=== PATIENT | female | born 1950 | race Caucasian/White ===

== ENCOUNTER 2017-07-20 12:47 | Outpatient (CLI) | payer MEDICARE | END 2017-07-20 12:48 | disposition home or self-care (01) | LOC: BICMAMMO 12:47 | PROVIDERS: ATTEND Family Medicine | DX: Z12.31 Encounter for screening mammogram for malignant neoplasm of breast (principal); R92.1 Mammographic calcification found on diagnostic imaging of breast | CPT/HCPCS: 77063; 77067 ==

== ENCOUNTER 2017-09-14 14:17 | Outpatient (CLI) | payer MEDICARE | END 2017-09-14 14:18 | disposition home or self-care (01) | LOC: BICMAMMO 14:17 | PROVIDERS: ATTEND Family Medicine | DX: R92.1 Mammographic calcification found on diagnostic imaging of breast (principal) | CPT/HCPCS: 77065; G0279 ==

== ENCOUNTER 2018-08-03 13:36 | Outpatient (CLI) | payer MEDICARE ==
--- NOTE | 2018-08-09 13:22 | MMO ---
Bilateral MAMMO Bilat Diag DDI+SATHYA. CLINICAL HISTORY: Patient is 67 years old and is seen for diagnostic exam. The patient has no family history of breast cancer. The patient has no personal history of cancer. VIEWS: The views performed were: bilateral mediolateral; bilateral craniocaudal with tomosynthesis; bilateral mediolateral oblique with tomosynthesis; left craniocaudal magnification; and left mediolateral magnification. FILMS COMPARED: The present examination has been compared to prior imaging studies performed at [facility] on 07/20/2017 and 09/14/2017. MAMMOGRAM FINDINGS: The breasts are heterogeneously dense, which could obscure a lesion on mammography. There are stable calcifications seen in the left breast. In the right breast, there are no suspicious masses, calcifications or areas of architectural distortion. IMPRESSION: STABLE CALCIFICATIONS IN THE LEFT BREAST ARE PROBABLY BENIGN. FOLLOW-UP IN 6 MONTHS IS RECOMMENDED. THE RESULTS OF THIS EXAM WERE SENT TO THE PATIENT. ACR BI-RADS Category 3 - Probably benign finding - short interval follow-up suggested. [facility] will notify the patient of the need for additional imaging services. MAMMOGRAPHY NOTE: 1. A negative mammogram report should not delay a biopsy if a dominant of clinically suspicious mass is present. 2. Approximately 10% to 15% of breast cancers are not detected by mammography. 3. Adenosis and dense breasts may obscure an underlying neoplasm.
== END 2018-08-03 13:37 | disposition home or self-care (01) ==
LOC: BICMAMMO 13:36
PROVIDERS: ATTEND Family Medicine
DX: R92.8 Other abnormal and inconclusive findings on diagnostic imaging of breast (principal); R92.1 Mammographic calcification found on diagnostic imaging of breast
CPT/HCPCS: 77066; G0279

== ENCOUNTER 2020-05-10 12:23 | Inpatient (IN) | payer MEDICARE ==
[2020-05-10] MEDS ORDERED: Morphine 4 MG/ML VIAL ONE ×2 (13:13→18:11)
[2020-05-10] MEDS ORDERED: Ondansetron PF 4 MG/2 ML Vial ONE ×2 (13:13→18:11)
[2020-05-10] MEDS ORDERED: Magnevist 469MG/ML 20 ML VIAL ONE ×2 (13:22)
[2020-05-10 13:48] LABS: #Eosinphils 0.1 thou/uL (0.0-0.7); #Lymphocytes 1.5 thou/uL (1.20-3.40); #Monocytes 0.8 thou/uL (0.11-0.59); #Neutrophils 7.7 thou/uL (1.40-6.50); %Basophils 0.5 % (0.0-1.0); %Eosinophils 1.4 % (0.0-10.0); %Lymphocytes 14.4 % (21.0-51.0); %Monocytes 7.4 % (0.0-10.0); %Neutrophils 76.4 % (42.0-75.0); Hemoglobin 12.2 g/dL (12.0-16.0); Mean Corpuscular Hemoglobin 33.2 pg (27.0-31.0); Mean Platelet Volume 6.8 fL (7.4-10.4); Platelet Count 239 thou/uL (130-400); RBC Distribution Width 11.4 % (11.5-14.5); Red Blood Cell (RBC) Count 3.66 mill/uL (4.20-5.40); White Blood Cell (WBC) Count 10.1 thou/uL (4.8-10.8)
--- NOTE | 2020-05-10 13:54 | RAD ---
Exam: Chest one view HISTORY:Fever. Pain. Comparison: None FINDINGS: Cardiac silhouette: Normal Aorta: Unremarkable Pulmonary vessels: Normal Costophrenic angles: Clear LUNGS: No masses or consolidation. Pneumothorax: None Osseous abnormalities: None IMPRESSION: No acute cardiopulmonary process.
[2020-05-10 14:10] LABS: ALT (SGPT) 23 U/L (8-55); AST (SGOT) 19 U/L (5-34); Albumin 4.4 g/dL (3.4-4.8); Alkaline Phosphatase 103 U/L (40-110); Anion Gap 18 mmol/L (10-20); BUN (Urea Nitrogen) 19 mg/dL (9.8-20.1); Bilirubin, Total 0.5 mg/dL (0.2-1.2); Calc. Creatinine Clearance 0 mL/min (70-130); Calcium 9.5 mg/dL (7.8-10.44); Carbon Dioxide 19 mmol/L (23-31); Chloride 100 mmol/L (98-107); Globulin 3.5 g/dL (2.4-3.5); Glucose 206 mg/dL (80-115); Protein, Total 7.9 g/dL (6.0-8.3); Sodium 133 mmol/L (136-145)
[2020-05-10] MEDS ORDERED: Heparin 1,000 UNITS/ML VIAL ONE (15:16)
--- NOTE | 2020-05-10 17:07 | MRI ---
MRI thoracic spine with and without contrast: 05/10/2020 HISTORY: 69-year-old female with thoracolumbar pain, elevated ESR and CRP, and fever. FINDINGS: Vertebral body heights are maintained. There is no evidence of bone marrow edema. Thoracic spinal cor d is normal in size and signal, with no abnormal enhancement. There is no evidence of epidural abscess. No cord compression, high-grade central spinal canal stenosis, high-grade neural foraminal s tenosis, or pathology in the perivertebral spaces. IMPRESSION: Negative thoracic spine.
--- NOTE | 2020-05-10 17:21 | MRI ---
MRI LUMBAR SPINE WITH AND WITHOUT CONTRAST: DATE: 05/10/2020 HISTORY: 69-year-old female with thoracolumbar spinal pain, elevated ESR and CRP, and fever. Unable to walk la st 4 days. COMPARISON: None TECHNIQUE: Multiple sequences obtained in axial and sagittal planes, pre and post IV injection of gadolinium-bas ed contrast agent. FINDINGS: Urinary bladder is distended. 5 lumbar type vertebrae will be assumed for this report. Conus medullaris terminates at upper L2. No central spinal canal stenosis or high-grade neural forami nal stenosis, at any level. There is lateral curvature. No spondylolisthesis. Cauda equina is arranged in a symmetrical, normal distribution throughout the thecal sac. Other than the lateral curvature, all levels from T12-L1 through L3-4, are essentially normal, except for mild DJD of the L3-4 facets. At L4-5 there is mild to moderate bilateral facet DJD, mild bilateral neural foraminal stenosis, and no central stenosis. Mild disc bulge. At L5-S1 there is mild to moderate disc space narrowing, diffuse disc bulge, and broad-based central and bilateral paracentral small to moderate-sized disc herniation with annular fissure. There is enhancing granulation tissue in the prevertebral space, from approximately the 9:00 position to the 1 :00 position, as seen on axial images. There is mild bone marrow enhancement of the right side of the endplates. There is curvilinear enhancement at the far anterior and far posterior aspects of the intervertebral discs, representing annular fissures. There is no gordo destruction of the endplates. Mild irregularity of endplates probably represent degenerative changes. There is moderate to severe right neural foraminal stenosis and mild to moderate left neural foraminal stenosis. No bony central spinal canal stenosis. In the anterior epidural space, there is enhancement consistent w ith granulation tissue, from L4-5 through S1. No discrete abscess is identified.. IMPRESSION: 1) prominent inflammatory process, with granulation tissue at the L5-S1 level, both in the extraspina l prevertebral space, and in the anterior epidural space. There are 2 possibilities. One is that this could represent an infectious process but without an abscess yet. The other possibility is these could be due to acute annular fissures/tears with acute disc herniations, with herniated material from the nucleus pulposis causing inflammation in the anterior epidural space and prevertebral space . After treatment with antibiotics, follow-up MRI of the lumbar spine with and without contrast should be considered in several days. 2) no significant pathology of the rest of the lumbar spine
[2020-05-10] MEDS ORDERED: Sodium Chloride 0.9% 100 ML ONE (17:48)
[2020-05-10] MEDS ORDERED: cefTRIAXone\\ROCEPHIN 2 GM VIAL ONE (17:48)
[2020-05-10] MEDS ORDERED: Acetaminophen 500 MG TAB ONE (18:11)
[2020-05-10] MEDS ORDERED: Vancomycin 1.5 GRAM/300 ML BAG 1.5 GM in Premix Bag 1 BAG IVPB SCH (18:45)
[2020-05-10 18:55] LABS: Bacteria/HPF None Seen HPF (None Seen); Bilirubin Negative (Negative); Blood, Urine 1+ (Negative); Clarity Clear (Clear); Glucose, Urine (Dipstick) Normal (Negative); Ketone, Urine Trace mg/dL (Negative); Leukocyte 25 Leu/uL (Negative); Mucous/LPF 1+ LPF (<2+); Nitrite Negative (Negative); Protein, Urine (Dipstick) 20 mg/dL (Neg-Trace); Specific Gravity, Urine 1.033 (1.002-1.036); Squamous Epithelial 0-3 HPF (0-3); Urobilinogen Normal mg/dL (Less than 2); WBC/HPF 0-3 HPF (0-3); pH, Urine 5.5 (5.0-9.0)
[2020-05-10] MEDS ORDERED: Senokot S 8.6-50 MG TAB PO PRN (19:11)
[2020-05-10] MEDS ORDERED: Ondansetron ODT 4 MG TAB PO PRN (19:11)
[2020-05-10] MEDS ORDERED: Calcium Carbonate 500 MG ChewTAB PO PRN (19:11)
[2020-05-10] MEDS ORDERED: Ondansetron PF 4 MG/2 ML Vial IVP PRN (19:11)
[2020-05-10] MEDS ORDERED: Bisacodyl 5 MG TAB PO PRN (19:11)
[2020-05-10] MEDS ORDERED: Morphine 2 MG/ML VIAL SLOW IVP PRN (19:13)
[2020-05-10] MEDS ORDERED: HumaLOG 300 UNITS/3 ML VIAL SC PRN (19:18)
[2020-05-10] MEDS ORDERED: Dextrose 5% in Water 1,000 ML IV PRN (19:18)
[2020-05-10] MEDS ORDERED: Dextrose 50% Abboject 50 ML SYRINGE SLOW IVP PRN (19:18)
--- NOTE | 2020-05-10 20:11 | HP ---
CHIEF COMPLAINT: Back pain and fever. PRIMARY CARE PHYSICIAN: Yoel Veloz MD HISTORY OF PRESENT ILLNESS: The patient is a 69-year-old female with past medical history significant for hypertension; hyperlipidemia; type 2 diabetes, non- insulin dependent; and bipolar disorder, who presents to the emergency department for the above complaint. The patient reports the acute onset of back pain and fever for the past 4 days. She states that her back pain is located primarily to her right lower back and right shoulder, described as aching, intermittent pain, exacerbated with movement, relieved by rest. She reports an associated fever at the same time of onset of her back pain. She reports that T-max of 104.7 Fahrenheit at home. She has been treating this with [id number] medications. She denies any known sick contacts, loss of smell or taste. She denies any cough or shortness of breath. She denies any neck stiffness or headache. She has not traveled out of the [place] in the recent past. She denies any dysuria, hematuria, and incontinence. No recent trauma or falls or saddle anesthesia. She denies any recent surgeries. She has had no surgeries to her back or any previous trauma to her back. She reports that the pain makes it difficult to ambulate, however, she is able to ambulate without any assistive devices. In the emergency department, the patient presented afebrile, normal blood pressure, normal pulse, normal respirations and normal SpO2. She reported her pain 10/10 on the pain scale. MRI of the thoracic spine was negative for any acute process. MRI of lumbar spine showed abnormality at L5 and S1. Infection without abscess versus disk herniation. ESR was 54 and CRP was 29.7. WBCs 10.1. Neurosurgery was consulted by the ER MD and it was documented they felt no surgical intervention and felt like this is more of a chronic process. No intervention at this time. The patient was given vancomycin, Rocephin, 2 L normal saline, Tylenol, morphine, and Zofran for control of her symptoms. Upon assessment, the patient reports that her pain is improved significantly, however, it is 5/10 on the pain scale. UA and COVID screen are pending. PAST MEDICAL HISTORY: 1. Bipolar disorder. 2. ADHD. 3. Hypertension. 4. Hyperlipidemia. 5. Type 2 diabetes, treated, lifestyle changes. PAST SURGICAL HISTORY: 1. Hysterectomy. 2. Bladder suspension. SOCIAL HISTORY: Lives alone. Has no history of smoking, alcohol intake, or illicit drug abuse. She is independent. FAMILY HISTORY: Noncontributory to this case. ALLERGIES: NO KNOWN DRUG ALLERGIES. HOME MEDICATIONS: 1. Effexor XR. 2. Olanzapine. 3. Doxepin. 4. Vyvanse. 5. Lisinopril. 6. Atorvastatin. 7. Baby aspirin. REVIEW OF SYSTEMS: All review of systems are negative unless otherwise stated in the HPI. PHYSICAL EXAMINATION: CONSTITUTIONAL: The patient is in no acute distress, appears uncomfortable, nontoxic. HEAD: Atraumatic, normocephalic. EYES: Extraocular muscles intact. PERRLA. ENT: Bilateral EACs are clear. TMs are intact. Oropharynx is clear. Uvula midline. No lesions. NECK: Full range of motion. No cervical spinous tenderness. No cervical adenopathy. RESPIRATORY/CHEST: Respirations are even and unlabored. Clear to auscultation. No rhonchi, wheezes, or rales. CARDIOVASCULAR: S1 and S2 appreciated. No murmurs, rubs, or gallops. ABDOMEN: Soft, nontender, and nondistended. Active bowel sounds. No guarding. No rigidity. No rebound tenderness. Negative Rovsing's sign. Negative Carlos's sign. BACK: The patient has facial grimacing and is tender to palpation on her right paraspinous muscles in her lumbar region. There is no erythema. There is no swelling. There are no open lesions. There is no bruising. EXTREMITIES: Upper extremities, full range of motion, normal strength, sensation intact. Palpable radial pulses. Lower extremities, HSNE (high sensitivity neuro exam), thoracic and lumbar spine intact. The patient did have facial grimacing and difficulty crossing her right leg over her left, but was able to perform the task nonetheless. No saddle anesthesia. Cranial nerves II through XII are intact. No focal motor deficits. PSYCHIATRIC: Denies suicidal or homicidal ideation. A and O x3. LABORATORY DATA AND DIAGNOSTICS: MRI of thoracic spine, negative for any acute process. MRI lumbar spine, impression, 1. Prominent inflammatory process with granulation tissue at the L5-S1 level, both in the extra-spinal prevertebral space and in the anterior epidural space. There are two possibilities, one is that this could represent an infectious process, but without an abscess yet. The other possibility is this could be due to acute annular fissure tears with acute disk herniations with herniated material from the nucleus pulposus causing inflammation in the anterior epidural space and prevertebral space. After treatment with antibiotics, follow up MRI of the lumbar spine with and without contrast should be considered in several days. 2. No significant pathology of the rest of the lumbar spine. Sodium 133, potassium 4.0, chloride 100, carbon dioxide 19, BUN 19, creatinine 1.19, glucose 206, calcium 9.5, total bilirubin 0.5, AST 19, ALT 23, alkaline phosphatase 103, C-reactive protein 29.97, and ESR 54. WBCs 10.1, hemoglobin 12.2, hematocrit 37, and platelets 239. UA showed trace ketones, 1+ blood, no nitrites, 25 leukocyte esterase, no wbc's, no rbc's, no bacteria. IMPRESSION: 1. Atraumatic back pain with fever. 2. Diabetes mellitus, type 2, non-insulin dependent. 3. Hypertension. 4. Hyperlipidemia. 5. Bipolar disorder. 6. Attention deficit hyperactivity disorder. PLAN: A 69-year-old female, presents for atraumatic back pain with fever for 4 days. Inflammatory markers elevated. WBCs unremarkable. Imaging shows L5-S1 infection without abscess versus disk herniation. Neurosurgery consulted by ER MD no surgical intervention at this time. Given her fever, recommendation is to repeat MRI imaging several days after antibiotic therapy. The patient was given vancomycin and Rocephin in the ER. We will continue vancomycin and start cefepime. Blood and urine cultures pending. COVID swab pending. We will consult Infectious Disease. We will perform neuro checks. In terms of her diabetes, she presented with a blood glucose of 206. She reports that it is controlled by lifestyle and takes no home medications for this. We will start moderate ISS and Accu-Cheks before meals and at bedtime. We will check a hemoglobin A1c to assess control. In terms of her hypertension, we will restart her home dose of lisinopril. In terms of her hyperlipidemia, we will restart her home dose of atorvastatin. In terms of her bipolar disorder, she denies any suicidal or homicidal ideation, and we will restart her home dose of Effexor XR, olanzapine and doxepin. In terms of her ADHD, we will restart her Vyvanse. SCDs for deep venous thrombosis prophylaxis. Pepcid for gastrointestinal prophylaxis. CODE STATUS is a full code. Contact is her son, Andrew Julien at [phone]. Discussed the case with attending physician, Dr. Hawkins. Job ID: [id number] MTDD
[2020-05-10] MEDS: Famotidine 20 MG TAB PO SCH (20:38)
[2020-05-10 21:21] VITALS: BMI 30.5
[2020-05-10] MEDS: Famotidine/PF 20 mg/2ml Vial SLOW IVP SCH (22:07)
[2020-05-10] MEDS ORDERED: Cefepime 2 GM in Sodium Chloride 0.9% 100 ML IVPB SCH (22:45)
[2020-05-10] MEDS: HYDROcodone/Acetaminophen 5/325 mg Tablet PO PRN (23:18)
[2020-05-11 03:01] LABS: SARS-CoV-2 MS2 Positive; SARS-CoV-2 N Gene Negative; SARS-CoV-2 S Gene Negative; SARS-CoV-2 by NAA Not Detected (NotDetected); SARS-CoV-2 orf1ab Negative
[2020-05-11] MEDS: HYDROcodone/Acetaminophen 5/325 mg Tablet PO PRN ×3 (03:07→18:31)
[2020-05-11 05:42] LABS: #Basophils 0.1 thou/uL (0.0-0.2); #Eosinphils 0.1 thou/uL (0.0-0.7); #Lymphocytes 1.6 thou/uL (1.20-3.40); #Monocytes 0.8 thou/uL (0.11-0.59); #Neutrophils 5.3 thou/uL (1.40-6.50); %Basophils 0.6 % (0.0-1.0); %Eosinophils 0.7 % (0.0-10.0); %Lymphocytes 20.1 % (21.0-51.0); %Monocytes 10.8 % (0.0-10.0); %Neutrophils 67.8 % (42.0-75.0); Hemoglobin 9.8 g/dL (12.0-16.0); Mean Corpuscular HGB CONC 32.2 g/dL (32.0-36.0); Mean Corpuscular Hemoglobin 32.6 pg (27.0-31.0); Mean Platelet Volume 6.8 fL (7.4-10.4); Platelet Count 268 thou/uL (130-400); RBC Distribution Width 11.5 % (11.5-14.5); Red Blood Cell (RBC) Count 3.02 mill/uL (4.20-5.40); White Blood Cell (WBC) Count 7.8 thou/uL (4.8-10.8)
[2020-05-11] MEDS ORDERED: Cyclobenzaprine 10 MG TAB PO SCH (05:45)
[2020-05-11 05:46] LABS: Hemoglobin A1c 5.4 % (4.0-6.0)
[2020-05-11 06:05] LABS: Anion Gap 14 mmol/L (10-20); BUN (Urea Nitrogen) 12 mg/dL (9.8-20.1); Calc. Creatinine Clearance 86 mL/min (70-130); Calcium 7.9 mg/dL (7.8-10.44); Carbon Dioxide 19 mmol/L (23-31); Chloride 107 mmol/L (98-107); Glucose 153 mg/dL (80-115); Potassium 3.9 mmol/L (3.5-5.1); Sodium 136 mmol/L (136-145)
[2020-05-11] MEDS ORDERED: Cefepime 2 GM in Sodium Chloride 0.9% 100 ML IVPB SCH (09:00)
--- NOTE | 2020-05-11 09:00 | PRG ---
DATE OF SERVICE: 05/11/2020 This is a 30-minute initial hospital visit note, in which 30 minutes were spent reviewing the imaging record, evaluation, examination of the patient. Greater than 50% of time was spent in counseling on Armand Garvin. Ms. Garvin was admitted and we requested thoracic and lumbar spine MRIs as the patient was unable to ambulate and had significant thoracic pain. Thoracic and MRI of the lumbar spine is essentially negative with exception of ventral epidural inflammation versus prominent lipomatosis and a small disk extrusion, resulting in some stenosis at L5-S1, but essentially again negative. She has significant elevation of multiple inflammation and infection markers along with fever, and obviously she is infected. This morning, she appears somewhat confused, but does move her lower extremities without any evidence of neurologic deficit. She is a bit inconsistent at times. She reports that she feels light touch sensation when I examine her in the left and right legs, but in fact I was not even applying tactile stimulation. Nevertheless, there is no role for neurosurgical intervention here. I would recommend obviously continue to pursue to the infectious source bacteremia. Job ID: [id number]
[2020-05-11] MEDS: Famotidine 20 MG TAB PO SCH ×2 (09:11→19:48)
[2020-05-11] MEDS: Famotidine/PF 20 mg/2ml Vial SLOW IVP SCH ×2 (09:12→22:02)
[2020-05-11] MEDS: HumaLOG 300 UNITS/3 ML VIAL SC PRN (09:12)
--- NOTE | 2020-05-11 15:33 | PDOC.HOSPP ---
- Subjective Encounter Date: 05/11/20 Encounter Time: 11:20 Subjective: Patient feels that she still has ongoing back pain. The somewhat soreness. And neurosurgery recommendation discussed with the patient today. And no surgical intervention. physical therapy. - Objective Vital Signs & Weight: Vital Signs (12 hours) Temp Pulse Resp BP Pulse Ox 05/11/20 11:47 98.2 F 101 H 18 138/85 93 L 05/11/20 08:25 94 L 05/11/20 07:24 98.6 F 95 18 113/77 94 L Weight Weight 177 lb 14.4 oz I&O: 05/10/20 05/11/20 05/12/20 06:59 06:59 06:59 Intake Total 500 Balance 500 Result Diagrams: 05/11/20 05:09 05/11/20 05:09 Additional Labs: Accuchecks 05/11/20 05/11/20 05/10/20 11:49 05:19 20:37 POC Glucose 109 H 161 H 138 H Hospitalist ROS - Medication Medications: Active Medications Generic Name Dose Route Start Last Admin Trade Name Freq PRN Reason Stop Dose Admin Hydrocodone Bitart/Acetaminophen 1 tab 05/10/20 19:11 05/11/20 14:50 Hydrocodone/Acetaminophen 5/325 Mg Tablet PO 1 tab Q4H PRN Administration Moderate Pain (4-6) Hydrocodone Bitart/Acetaminophen 2 tab 05/10/20 19:11 05/11/20 03:07 Hydrocodone/Acetaminophen 5/325 Mg Tablet PO 2 tab Q4H PRN Administration Severe Pain (7-10) Famotidine 20 mg 05/10/20 21:00 05/11/20 09:11 Famotidine 20 Mg Tab PO 20 mg BID ZURI Administration Famotidine 20 mg 05/10/20 21:00 05/11/20 09:12 Famotidine/Pf 20 Mg/2ml Vial SLOW IVP Not Given Q12HR ZURI Insulin Human Lispro 0 units 05/10/20 19:18 05/11/20 09:12 Humalog 300 Units/3 Ml Vial SC 2 unit .MODERATE SLIDING SC PRN Administration Moderate Correctional Scale - Exam General Appearance: NAD, awake alert Eye: PERRL ENT: normocephalic atraumatic Neck: supple, no lymphadenopathy Heart: RRR, normal peripheral pulses Respiratory: CTAB, normal chest expansion Gastrointestinal: soft, normal bowel sounds Neurological: cranial nerve grossly intact, no focal deficits Musculoskeletal: generalized weakness Psychiatric: A&O x 3 Hosp A/P - Plan Chronic back pain -Thoracic and lumbar spine negative with the exception of ventral epidural inflammation versus prominent lipomatosis and a small disc extrusion Mild stenosis at L5 and S1 gram Positive cocci bacteremia Urine culture negative --- DC ceftriaxone and start her on vancomycin and Zosyn -We will repeat the blood cultures tomorrow for follow-up. Hypertension -Continue with the lisinopril home regimen Bipolar disorder and attention deficit hyperactivity disorder Continue home regimen of Zyprexa Effexor and doxepin Covid negative
--- NOTE | 2020-05-11 15:37 | CON ---
DATE OF CONSULTATION: 05/11/2020 REASON FOR CONSULTATION: Possible diskitis, osteomyelitis. HISTORY OF PRESENT ILLNESS: A 69-year-old, history of type 2 diabetes, who lives in [place] with her parents and has had change in her clinical status for the past 4 to 5 days with progressively worsening lumbosacral spine pain and fever up to 102. No headaches. No shortness of breath or cough. No abdominal pain. No genitourinary symptoms. No diarrhea. There is a urine culture from February 12 with a beta-hemolytic Streptococcus, but there was no visit associated with that, so must have been an outpatient order. Anyways, now the patient has positive blood cultures and an abnormal MRI, which is consistent with diskitis and osteomyelitis as noted below. The patient is kind of drowsy, but easily arousable. She is oriented after some hints as to where she is. Her verbal output appears to be normal, but quite sluggish. She will follow commands after some insistence. REVIEW OF SYSTEMS: 10-point review of systems is as above. PAST MEDICAL HISTORY: Diabetes type 2, probably urinary tract infections in the past. She had a few urine cultures in 2018 and 2019. There is a history of bipolar disorder. PAST SURGICAL HISTORY: Includes hysterectomy, bladder suspension. SOCIAL HISTORY: Lives with parents in [place]. Never smoker. No alcoholic beverage use. ALLERGIES: NONE. HOME MEDICATIONS: Include: 1. Atorvastatin. 2. Effexor. 3. Lisinopril. 4. Vyvanse. 5. Olanzapine. 6. Doxepin. 7. Aspirin. Here, she is receivin. Cefepime. 2. IV fluids. 3. Hydrocodone. 4. Insulin. 5. Vancomycin. PHYSICAL EXAMINATION: VITAL SIGNS: T-max 98.6, blood pressure 130/85, heart rate 101, respiratory rate 18, O2 saturation 93% to 94%. SKIN: No skin changes of significance. Peripheral IV access. She is voiding in the bedside commode. No lymphadenopathy. HEENT: Ocular movements conjugate. Sclerae white. Pupils are equal. Conjunctivae normal. Oral cavity still with quite a few teeth in place. Oral mucosa is moist. NECK: Supple. No jugular venous distention. LUNGS: Symmetric. Clear breath sounds. HEART: S1 and S2 without murmurs. No S3 or S4. ABDOMEN: Soft. Not distended or tender. No ascites. No bladder distention. BACK: Marked pain in presacral region and lumbosacral region. EXTREMITIES: She is able to move extremities on command. The strength is preserved. Plantar responses are flexor. No clonus. Pulses 1+ in dorsalis pedis and popliteals. NEUROLOGIC: Awake, knows her name. She had a hard time in telling me where she was. She could tell me promptly where she lives in [place], but her recollection of the events is pretty good, where she was able to give me a proper sequence of events. LABORATORY DATA: White cell count 10.1, hemoglobin 12, platelets 239, with 76% neutrophils. Creatinine is 0.81. Liver profile normal. CRP was 29. Albumin 4.4. Urinalysis is 0 to 3 wbc's, 25 leukocyte esterase. SARS-CoV-2 PCR negative. Blood cultures are as noted above. The lumbar spine MRI with abnormalities including inflammatory process, granulation tissue, L5-S1 level in the extra-spinal prevertebral space, anterior epidural space. The thoracic spine is okay. A chest x-ray did not show any significant abnormalities. ASSESSMENT: Type 2 diabetes with acute onset of lumbosacral spine osteomyelitis, diskitis, and paravertebral soft tissue inflammatory process secondary to streptococcal pathogen, probably beta-hemolytic Streptococcus. Switch her to Rocephin daily. Discontinue remainder of the antimicrobials. Endocarditis needs to be evaluated with Echo. Will need a PICC line and protracted antimicrobial therapy administration. May have to transition to a swing bed in [place] first until she gets some recovery of her functional status or may be able to go home straight from the hospital stage depending on clinical progress. We need to verify that she is not developing urinary retention from cauda equina syndrome. It appears to me that this can be managed with antimicrobial alone, but we will have to continue with treatment in the hospital, verify her progress. Dr. Dong has evaluated the patient on May 11, he does not recommend any neurosurgical intervention. Job ID: [id number] [facility]
[2020-05-11] MEDS ORDERED: Vancomycin 1.5 GRAM/300 ML BAG 1.5 GM in Premix Bag 1 BAG IVPB SCH (18:00)
[2020-05-11] MEDS: cefTRIAXone\\ROCEPHIN 2 GM in Sodium Chloride 0.9% 100 ML IVPB SCH (18:11)
[2020-05-11] MEDS: Doxepin HCl 10 MG CAP PO SCH (19:49)
[2020-05-12] MEDS: HYDROcodone/Acetaminophen 5/325 mg Tablet PO PRN ×5 (01:09→19:14)
[2020-05-12] MEDS ORDERED: LISDEXAMFETAMINE DIMESYLATE 10 MG PO SCH (09:00)
[2020-05-12] MEDS: Aspirin 81 mg Enteric Coated Tablet PO SCH (09:49)
[2020-05-12] MEDS: Atorvastatin Calcium 40 MG TAB PO SCH (09:49)
[2020-05-12] MEDS: Famotidine 20 MG TAB PO SCH ×2 (09:49→19:55)
[2020-05-12] MEDS: OLANZapine 2.5 MG TAB PO SCH (09:49)
[2020-05-12] MEDS: Venlafaxine HCl XR 150 MG CAP PO SCH (09:49)
[2020-05-12] MEDS: Lisinopril 5 MG TAB PO SCH (09:52)
[2020-05-12] MEDS: Famotidine/PF 20 mg/2ml Vial SLOW IVP SCH ×2 (09:52→19:57)
--- NOTE | 2020-05-12 13:13 | PDOC.HOSPP ---
- Subjective Encounter Date: 05/12/20 Encounter Time: 09:30 Subjective: Occupational therapy nearby patient is quite somnolent I have to wake her few times in order to communicate with her. Patient is complaining still pain but she is so lethargic and somnolent and not participating in any active conversation. She has a fairly poor. Blood culture is growing group B strep. - Objective Vital Signs & Weight: Vital Signs (12 hours) Temp Pulse Resp BP BP Pulse Ox 05/12/20 12:14 98.4 F 93 16 103/67 95 05/12/20 09:52 97 125/79 05/12/20 07:16 99.0 F 97 14 124/74 95 05/12/20 04:26 98.1 F 91 20 108/71 95 Weight Weight 177 lb 14.4 oz I&O: 05/11/20 05/12/20 05/13/20 06:59 06:59 06:59 Intake Total 500 800 Output Total 750 Balance 500 50 Result Diagrams: 05/11/20 05:09 05/11/20 05:09 Additional Labs: Accuchecks 05/12/20 05/12/20 05/11/20 12:17 05:39 19:55 POC Glucose 126 H 109 H 162 H 05/11/20 16:03 POC Glucose 137 H Hospitalist ROS - Medication Medications: Active Medications Generic Name Dose Route Start Last Admin Trade Name Freq PRN Reason Stop Dose Admin Hydrocodone Bitart/Acetaminophen 1 tab 05/10/20 19:11 05/11/20 14:50 Hydrocodone/Acetaminophen 5/325 Mg Tablet PO 1 tab Q4H PRN Administration Moderate Pain (4-6) Hydrocodone Bitart/Acetaminophen 2 tab 05/10/20 19:11 05/12/20 09:15 Hydrocodone/Acetaminophen 5/325 Mg Tablet PO 2 tab Q4H PRN Administration Severe Pain (7-10) Aspirin 81 mg 05/12/20 09:00 05/12/20 09:49 Aspirin 81 Mg Enteric Coated Tablet PO 81 mg DAILY ZURI Administration Atorvastatin Calcium 40 mg 05/12/20 09:00 05/12/20 09:49 Atorvastatin Calcium 40 Mg Tab PO 40 mg DAILY ZURI Administration Doxepin HCl 10 mg 05/11/20 21:00 05/11/20 19:49 Doxepin Hcl 10 Mg Cap PO 10 mg HS ZURI Administration Famotidine 20 mg 05/10/20 21:00 05/12/20 09:49 Famotidine 20 Mg Tab PO 20 mg BID ZURI Administration Famotidine 20 mg 05/10/20 21:00 05/12/20 09:52 Famotidine/Pf 20 Mg/2ml Vial SLOW IVP Not Given Q12HR [facility] Ceftriaxone Sodium 2 gm/ 100 mls @ 200 mls/hr 05/11/20 17:00 05/11/20 18:11 Sodium Chloride IVPB 100 mls 1700 ZURI Administration Insulin Human Lispro 0 units 05/10/20 19:18 05/11/20 09:12 Humalog 300 Units/3 Ml Vial SC 2 unit .MODERATE SLIDING SC PRN Administration Moderate Correctional Scale Lisinopril 5 mg 05/12/20 09:00 05/12/20 09:52 Lisinopril 5 Mg Tab PO 5 mg DAILY ZURI Administration Morphine Sulfate 2 mg 05/10/20 19:13 05/12/20 03:41 Morphine 2 Mg/Ml Vial SLOW IVP 2 mg Q4H PRN Administration Breakthrough Pain Olanzapine 2.5 mg 05/12/20 09:00 05/12/20 09:49 Olanzapine 2.5 Mg Tab PO 2.5 mg DAILY ZURI Administration Venlafaxine HCl 150 mg 05/12/20 09:00 05/12/20 09:49 Venlafaxine Hcl Xr 150 Mg Cap PO 150 mg DAILY ZURI Administration - Exam General Appearance: ill appearing General - other findings: Lethargic Eye: PERRL ENT: normocephalic atraumatic Heart: RRR, normal peripheral pulses Respiratory: CTAB, normal chest expansion Gastrointestinal: soft, normal bowel sounds Neurological: cranial nerve grossly intact Musculoskeletal: generalized weakness Psychiatric: somnolent, lethargic Hosp A/P - Plan Chronic back pain -Thoracic and lumbar spine negative with the exception of ventral epidural inflammation versus prominent lipomatosis and a small disc extrusion Mild stenosis at L5 and S1 Beta-hemolytic Streptococcus bacteremia Urine culture negative -Repeating the culture ON for follow-up --- Patient currently on ceftriaxone --Echo has been ordered -PICC line order placed by Dr. Vasquez and appreciate his help. Hypertension -Continue with the lisinopril home regimen Urine retention -Patient has a Sue -Once she is more alert and oriented will DC the Sue and do the voiding trial Bipolar disorder and attention deficit hyperactivity disorder Continue home regimen of Zyprexa Effexor and doxepin Covid negative Debility -Hold the physical therapy treatment until patient is more alert and oriented. - I will reduce the morphine dose and give her lidocaine patch to her back. Will help to reduce her oversedation
[2020-05-12] MEDS ORDERED: Morphine 2 MG/ML VIAL SLOW IVP PRN (13:19)
[2020-05-12] MEDS ORDERED: Lidocaine 5% Patch TD SCH (13:30)
[2020-05-12] MEDS: cefTRIAXone\\ROCEPHIN 2 GM in Sodium Chloride 0.9% 100 ML IVPB SCH (17:23)
[2020-05-12] MEDS ORDERED: Cyclobenzaprine 10 MG TAB PO SCH (19:45)
[2020-05-12] MEDS: Doxepin HCl 10 MG CAP PO SCH (19:55)
[2020-05-12] MEDS: Lidocaine Patch Removal 1 EACH TOP SCH (19:58)
[2020-05-13] MEDS: HYDROcodone/Acetaminophen 5/325 mg Tablet PO PRN ×6 (01:06→21:05)
[2020-05-13] MEDS ORDERED: Morphine 2 MG/ML VIAL SLOW IVP SCH (04:00)
[2020-05-13] MEDS: Lidocaine 5% Patch TD SCH (08:09)
[2020-05-13] MEDS: Famotidine 20 MG TAB PO SCH ×2 (08:17→21:04)
[2020-05-13] MEDS: Aspirin 81 mg Enteric Coated Tablet PO SCH (08:17)
[2020-05-13] MEDS: Atorvastatin Calcium 40 MG TAB PO SCH (08:18)
[2020-05-13] MEDS: Venlafaxine HCl XR 150 MG CAP PO SCH (08:18)
[2020-05-13] MEDS: OLANZapine 2.5 MG TAB PO SCH (08:18)
[2020-05-13] MEDS: Famotidine/PF 20 mg/2ml Vial SLOW IVP SCH ×2 (08:18→21:04)
[2020-05-13] MEDS: Lisinopril 5 MG TAB PO SCH (08:19)
[2020-05-13] MEDS: traMADol HCl 50 MG TAB PO PRN ×2 (11:41→16:24)
--- NOTE | 2020-05-13 13:17 | PDOC.HOSPP ---
- Subjective Encounter Date: 05/13/20 Encounter Time: 09:58 Subjective: Talk to the nurse patient is still kind of very lethargic and somnolent but she is still asking for pain medication. I have provided the lidocaine patch for her back. I talked to the nurse this morning. Will agree with holding IV morphine - Objective Vital Signs & Weight: Vital Signs (12 hours) Temp Pulse Resp BP BP Pulse Ox 05/13/20 11:24 98 F 93 14 146/86 H 92 L 05/13/20 08:19 92 94/56 L 05/13/20 08:18 95 05/13/20 07:28 97.8 F 92 16 94/56 L 90 L 05/13/20 03:48 98.4 F 104 H 18 137/80 93 L Weight Weight 177 lb 14.4 oz I&O: 05/12/20 05/13/20 05/14/20 06:59 06:59 06:59 Intake Total 800 800 400 Output Total 750 1300 300 Balance 50 -500 100 Result Diagrams: 05/11/20 05:09 05/11/20 05:09 Additional Labs: Accuchecks 05/13/20 05/13/20 05/12/20 10:55 05:18 21:08 POC Glucose 106 H 121 H 119 H 05/12/20 15:46 POC Glucose 135 H Hospitalist ROS - Medication Medications: Active Medications Generic Name Dose Route Start Last Admin Trade Name Freq PRN Reason Stop Dose Admin Hydrocodone Bitart/Acetaminophen 1 tab 05/10/20 19:11 05/13/20 09:15 Hydrocodone/Acetaminophen 5/325 Mg Tablet PO 1 tab Q4H PRN Administration Moderate Pain (4-6) Aspirin 81 mg 05/12/20 09:00 05/13/20 08:17 Aspirin 81 Mg Enteric Coated Tablet PO 81 mg DAILY ZURI Administration Atorvastatin Calcium 40 mg 05/12/20 09:00 05/13/20 08:18 Atorvastatin Calcium 40 Mg Tab PO 40 mg DAILY ZURI Administration Doxepin HCl 10 mg 05/11/20 21:00 05/12/20 19:55 Doxepin Hcl 10 Mg Cap PO 10 mg HS ZURI Administration Famotidine 20 mg 05/10/20 21:00 05/13/20 08:17 Famotidine 20 Mg Tab PO 20 mg BID ZURI Administration Famotidine 20 mg 05/10/20 21:00 05/13/20 08:18 Famotidine/Pf 20 Mg/2ml Vial SLOW IVP Not Given Q12HR [facility] Ceftriaxone Sodium 2 gm/ 100 mls @ 200 mls/hr 05/11/20 17:00 05/12/20 17:23 Sodium Chloride IVPB 100 mls 1700 ZURI Administration Insulin Human Lispro 0 units 05/10/20 19:18 05/11/20 09:12 Humalog 300 Units/3 Ml Vial SC 2 unit .MODERATE SLIDING SC PRN Administration Moderate Correctional Scale Lidocaine 1 patch 05/13/20 09:00 05/13/20 08:09 Lidocaine 5% Patch TD 1 patch DAILY ZURI Administration Lisinopril 5 mg 05/12/20 09:00 05/13/20 08:19 Lisinopril 5 Mg Tab PO Not Given DAILY ZURI Miscellaneous Medication 1 each 05/12/20 21:00 05/12/20 19:58 Lidocaine Patch Removal 1 Each TOP 1 each 2100 ZURI Administration Olanzapine 2.5 mg 05/12/20 09:00 05/13/20 08:18 Olanzapine 2.5 Mg Tab PO 2.5 mg DAILY ZURI Administration Sodium Chloride 10 ml 05/10/20 19:11 05/13/20 02:20 Flush - Normal Saline 10 Ml Syringe IVF 10 ml PRN PRN Administration Saline Flush Tramadol HCl 50 mg 05/13/20 10:45 05/13/20 11:41 Tramadol Hcl 50 Mg Tab PO 50 mg Q6H PRN Administration Pain Venlafaxine HCl 150 mg 05/12/20 09:00 05/13/20 08:18 Venlafaxine Hcl Xr 150 Mg Cap PO 150 mg DAILY ZURI Administration - Exam General - other findings: Somnolent Eye: PERRL ENT: normocephalic atraumatic Neck: supple Heart: RRR, normal peripheral pulses Respiratory: CTAB, normal chest expansion Gastrointestinal: soft, normal bowel sounds Neurological: cranial nerve grossly intact, no new deficit Psychiatric: somnolent, lethargic Hosp A/P - Plan Chronic back pain -Thoracic and lumbar spine negative with the exception of ventral epidural inflammation versus prominent lipomatosis and a small disc extrusion Mild stenosis at L5 and S1 Beta-hemolytic Streptococcus bacteremia Urine culture negative -Repeating the culture ON for follow-up --- Patient currently on ceftriaxone --Echo has been ordered -PICC line order placed by Dr. Vasquez and appreciate his help. Hypertension -Continue with the lisinopril home regimen Urine retention -Patient has a Sue -Once she is more alert and oriented will DC the Sue and do the voiding trial Bipolar disorder and attention deficit hyperactivity disorder Continue home regimen of Zyprexa Effexor and doxepin Covid negative Debility -Hold the physical therapy treatment until patient is more alert and oriented. - I christophe dc the morphine dose and give her lidocaine patch to her back. Will help to reduce her oversedation
[2020-05-13] MEDS: cefTRIAXone\\ROCEPHIN 2 GM in Sodium Chloride 0.9% 100 ML IVPB SCH (16:24)
[2020-05-13 18:39] LABS: SARS-CoV-2 MS2 Positive; SARS-CoV-2 N Gene Negative; SARS-CoV-2 S Gene Negative; SARS-CoV-2 by NAA Not Detected (NotDetected); SARS-CoV-2 orf1ab Negative
[2020-05-13] MEDS: Doxepin HCl 10 MG CAP PO SCH (21:03)
[2020-05-13] MEDS: Lidocaine Patch Removal 1 EACH TOP SCH (21:07)
[2020-05-14] MEDS: HYDROcodone/Acetaminophen 5/325 mg Tablet PO PRN ×5 (00:59→20:42)
[2020-05-14] MEDS: traMADol HCl 50 MG TAB PO PRN ×3 (01:00→14:28)
[2020-05-14] MEDS: Acetaminophen 325 MG TAB PO PRN ×2 (08:29→17:12)
[2020-05-14] MEDS: Lisinopril 5 MG TAB PO SCH (08:30)
[2020-05-14] MEDS: Aspirin 81 mg Enteric Coated Tablet PO SCH (08:30)
[2020-05-14] MEDS: Atorvastatin Calcium 40 MG TAB PO SCH (08:31)
[2020-05-14] MEDS: Famotidine 20 MG TAB PO SCH ×2 (08:31→20:41)
[2020-05-14] MEDS: Venlafaxine HCl XR 150 MG CAP PO SCH (08:31)
[2020-05-14] MEDS: OLANZapine 2.5 MG TAB PO SCH (08:31)
[2020-05-14] MEDS: Famotidine/PF 20 mg/2ml Vial SLOW IVP SCH ×2 (08:31→20:46)
--- NOTE | 2020-05-14 09:37 | SPC ---
PICC PLACEMENT ULTRASOUND-GUIDED VENOUS ACCESS: (Peripherally inserted central catheter) DATE: 05/14/2020 HISTORY: 69-year-old female with bacteremia TECHNIQUE: Catheter caliber: 5 [place] Catheter trim length:49 cm Catheter lumen number:single Catheter tip location:right atrium Vein accessed:left basilic Total fluoroscopy time: 0.4 min. Dose area product: 1894 mGy*cm^2 Signed, informed consent was obtained. A tourniquet was applied at the proximal aspect of the arm. Th e arm was prepped and draped in the usual sterile fashion. A 25-gauge needle was used to applied buffered lidocaine superficially. The vein was punctured with a 21-gauge micropuncture needle under u ltrasound guidance. A 0.018 inch guidewire was advanced through the micropuncture needle and into the vein. Under fluoroscopic guidance, the guidewire was advanced to the superior vena cava. The PICC was flushed and trimmed to the appropriate length. The micropuncture needle was exchanged over the guidewire for a 5 [place] peel-away dilator sheath. The dilator was exchanged over the guidewire for t he PICC, which was then further advanced under fluoroscopy. The sheath and guidewire were removed. The PICC was flushed again and secured in place at the arm after adjustment of tip position. The jerardo ent tolerated the procedure well. There was no complication. IMPRESSION: Successful placement of PICC (peripherally inserted central catheter).
[2020-05-14] MEDS: Lidocaine 5% Patch TD SCH (10:38)
--- NOTE | 2020-05-14 15:15 | PDOC.HOSPP ---
- Subjective Encounter Date: 05/14/20 Encounter Time: 09:45 Subjective: Spouse at bedside. 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 He is wondering whether her presentation is caused by any contagious disease. Patient has a bacteremia and a L5-S1 disc extrusion. There is no indication for any contagious process. Explained that because of her debilitation she may not be strong candidate for home health therapy. he preferred that she comes home and he states that he should be able to take care of her with home assistance for IV antibiotic infusion. He also mentioned that he should be able to do IV infusion if we can be taught. Barrios remains the same in terms of being lethargic and somnolent. - Objective Vital Signs & Weight: Vital Signs (12 hours) Temp Pulse Resp BP BP BP Pulse Ox 05/14/20 11:35 98.1 F 97 16 159/95 H 92 L 05/14/20 10:15 135/82 05/14/20 08:31 92 L 05/14/20 08:30 107 H 163/83 H 05/14/20 07:45 98.2 F 107 H 16 163/83 H 92 L Weight Weight 177 lb 14.4 oz I&O: 05/13/20 05/14/20 05/15/20 06:59 06:59 06:59 Intake Total 800 640 Output Total 1300 750 Balance -500 -110 Result Diagrams: 05/11/20 05:09 05/11/20 05:09 Additional Labs: Accuchecks 05/14/20 05/14/20 05/13/20 10:38 05:08 20:47 POC Glucose 93 89 115 H 05/13/20 15:18 POC Glucose 106 H Hospitalist ROS - Medication Medications: Active Medications Generic Name Dose Route Start Last Admin Trade Name Freq PRN Reason Stop Dose Admin Acetaminophen 650 mg 05/10/20 19:11 05/14/20 08:29 Acetaminophen 325 Mg Tab PO 650 mg Q4H PRN Administration Headache/Fever/Mild Pain (1-3) Hydrocodone Bitart/Acetaminophen 1 tab 05/10/20 19:11 05/14/20 11:07 Hydrocodone/Acetaminophen 5/325 Mg Tablet PO 1 tab Q4H PRN Administration Moderate Pain (4-6) Aspirin 81 mg 05/12/20 09:00 05/14/20 08:30 Aspirin 81 Mg Enteric Coated Tablet PO 81 mg DAILY ZURI Administration Atorvastatin Calcium 40 mg 05/12/20 09:00 05/14/20 08:31 Atorvastatin Calcium 40 Mg Tab PO 40 mg DAILY ZURI Administration Doxepin HCl 10 mg 05/11/20 21:00 05/13/20 21:03 Doxepin Hcl 10 Mg Cap PO 10 mg HS ZURI Administration Famotidine 20 mg 05/10/20 21:00 05/14/20 08:31 Famotidine 20 Mg Tab PO 20 mg BID ZURI Administration Famotidine 20 mg 05/10/20 21:00 05/14/20 08:31 Famotidine/Pf 20 Mg/2ml Vial SLOW IVP Not Given Q12HR [facility] Ceftriaxone Sodium 2 gm/ 100 mls @ 200 mls/hr 05/11/20 17:00 05/13/20 16:24 Sodium Chloride IVPB 100 mls 1700 ZURI Administration Insulin Human Lispro 0 units 05/10/20 19:18 05/11/20 09:12 Humalog 300 Units/3 Ml Vial SC 2 unit .MODERATE SLIDING SC PRN Administration Moderate Correctional Scale Lidocaine 1 patch 05/13/20 09:00 05/14/20 10:38 Lidocaine 5% Patch TD 1 patch DAILY ZURI Administration Lisinopril 5 mg 05/12/20 09:00 05/14/20 08:30 Lisinopril 5 Mg Tab PO 5 mg DAILY ZURI Administration Miscellaneous Medication 1 each 05/12/20 21:00 05/13/20 21:07 Lidocaine Patch Removal 1 Each TOP 1 each 2100 ZURI Administration Olanzapine 2.5 mg 05/12/20 09:00 05/14/20 08:31 Olanzapine 2.5 Mg Tab PO 2.5 mg DAILY ZURI Administration Sodium Chloride 10 ml 05/10/20 19:11 05/13/20 02:20 Flush - Normal Saline 10 Ml Syringe IVF 10 ml PRN PRN Administration Saline Flush Tramadol HCl 50 mg 05/13/20 10:45 05/14/20 14:28 Tramadol Hcl 50 Mg Tab PO 50 mg Q6H PRN Administration Pain Venlafaxine HCl 150 mg 05/12/20 09:00 05/14/20 08:31 Venlafaxine Hcl Xr 150 Mg Cap PO 150 mg DAILY ZURI Administration - Exam General Appearance: ill appearing Eye: PERRL ENT: normocephalic atraumatic Neck: supple Heart: RRR Respiratory: CTAB, normal chest expansion Gastrointestinal: soft, normal bowel sounds Extremities: 1+ LE edema Neurological: cranial nerve grossly intact Musculoskeletal: generalized weakness Psychiatric: normal affect, normal behavior, A&O x 3 Hosp A/P - Plan Chronic back pain -Thoracic and lumbar spine negative with the exception of ventral epidural i nflammation versus prominent lipomatosis and a small disc extrusion Mild stenosis at L5 and S1 Beta-hemolytic Streptococcus bacteremia Urine culture negative -Repeating the culture ON for follow-up--------------> cultures were negative x48 hours --- Patient currently on ceftriaxone --Echo showed normal EF of 65% and normal left ventricular size normal mitral valve and aortic wall. -PICC line placed Hypertension -Continue with the lisinopril home regimen Urine retention -Patient has a Sue -Once she is more alert and oriented will DC the Sue and do the voiding trial Bipolar disorder and attention deficit hyperactivity disorder Continue home regimen of Zyprexa Effexor and doxepin Covid negative Debility -Hold the physical therapy treatment until patient is more alert and oriented. - I christophe dc the morphine dose and give her lidocaine patch to her back. Will help to reduce her oversedation Explained to the spouse that because of her debilitation she may not be strong candidate for home health therapy. he preferred that she comes home and he states that he should be able to take care of her with home assistance for IV antibiotic infusion. He also mentioned that he should be able to do IV infusion if we can teach him. She may need to ceftriaxone IV 2 g daily for at least 4 weeks. will check with Dr. Vasquez. When she is able to communicate and become more alert, will decide on the options of going home with home physical therapy and nursing for IV abx versus swing bed for IV infusion.
--- NOTE | 2020-05-14 16:08 | PRG ---
DATE OF SERVICE: 05/14/2020 SUBJECTIVE: Still with pain. She has been able to do physical therapy and was able to stand up and sit in the chair. Still has a Sue catheter in place. No respiratory symptoms. No abdominal pain. OBJECTIVE: VITAL SIGNS: T-max 98.1, BP 150/95, O2 saturations 92% on room air, heart rate 97. GENERAL: Awake, alert, oriented. LUNGS: Clear. HEART: S1, S2, regular rate. ABDOMEN: Soft, not distended. EXTREMITIES: She is able to move her lower extremities, although sluggishly. NEUROGENIC: She is oriented. LABORATORY DATA: WBC 7.8, hemoglobin 9.8, platelets 268, 76% neutrophils. Creatinine 0.81, which is improved from admission. Microbiology with Streptococcus mitis/oralis were the usual susceptibility profile. Echocardiogram, EF 60% to 65%. The mitral and aortic valve normal structure. Of course, with the transthoracic, the visualization was not optimal. ASSESSMENT AND DISCUSSION: Type 2 diabetes and acute onset of lumbosacral spine osteomyelitis, diskitis, paravertebral soft tissue inflammatory process, urinary retention, this all due to Streptococcus mitis/oralis. Endocarditis is not ruled out with the technically less than optimal study. PICC line is in and we will continue Rocephin for 6 weeks. Weekly labs. Job ID: [id number]
[2020-05-14] MEDS: cefTRIAXone\\ROCEPHIN 2 GM in Sodium Chloride 0.9% 100 ML IVPB SCH (16:13)
[2020-05-14] MEDS: Doxepin HCl 10 MG CAP PO SCH (20:42)
[2020-05-14] MEDS: Lidocaine Patch Removal 1 EACH TOP SCH (21:30)
[2020-05-15] MEDS: Acetaminophen 325 MG TAB PO PRN ×3 (00:09→11:46)
[2020-05-15] MEDS: traMADol HCl 50 MG TAB PO PRN ×4 (00:10→21:47)
[2020-05-15] MEDS: HYDROcodone/Acetaminophen 5/325 mg Tablet PO PRN ×5 (04:32→21:47)
[2020-05-15] MEDS: Aspirin 81 mg Enteric Coated Tablet PO SCH (09:38)
[2020-05-15] MEDS: Famotidine 20 MG TAB PO SCH ×2 (09:38→19:39)
[2020-05-15] MEDS: Lidocaine 5% Patch TD SCH (09:38)
[2020-05-15] MEDS: Venlafaxine HCl XR 150 MG CAP PO SCH (09:38)
[2020-05-15] MEDS: Atorvastatin Calcium 40 MG TAB PO SCH (09:39)
[2020-05-15] MEDS: Lisinopril 5 MG TAB PO SCH (09:39)
[2020-05-15] MEDS: Famotidine/PF 20 mg/2ml Vial SLOW IVP SCH ×2 (09:39→19:37)
[2020-05-15] MEDS: OLANZapine 2.5 MG TAB PO SCH (09:40)
[2020-05-15 09:58] LABS: #Basophils 0.1 thou/uL (0.0-0.2); #Eosinphils 0.1 thou/uL (0.0-0.7); #Lymphocytes 1.3 thou/uL (1.20-3.40); #Monocytes 0.6 thou/uL (0.11-0.59); #Neutrophils 5.7 thou/uL (1.40-6.50); %Basophils 0.7 % (0.0-1.0); %Eosinophils 1.6 % (0.0-10.0); %Monocytes 7.6 % (0.0-10.0); %Neutrophils 73.2 % (42.0-75.0); Hemoglobin 10.4 g/dL (12.0-16.0); Mean Corpuscular HGB CONC 32.6 g/dL (32.0-36.0); Mean Corpuscular Hemoglobin 31.6 pg (27.0-31.0); Mean Corpuscular Volume 96.8 fL (78.0-98.0); Mean Platelet Volume 5.9 fL (7.4-10.4); Platelet Count 458 thou/uL (130-400); RBC Distribution Width 11.3 % (11.5-14.5); Red Blood Cell (RBC) Count 3.29 mill/uL (4.20-5.40); White Blood Cell (WBC) Count 7.8 thou/uL (4.8-10.8)
--- NOTE | 2020-05-15 13:27 | PDOC.HOSPP ---
- Subjective Encounter Date: 05/15/20 Encounter Time: 09:45 Subjective: I have explained to the patient that she would not be able to go home as she is barely able to get out of the bed on her own. Encouraged her to consider going to the skilled facility's/swing bed for IV antibiotic infusion yes she needed for 6 weeks. - Objective Vital Signs & Weight: Vital Signs (12 hours) Temp Pulse Resp BP BP Pulse Ox 05/15/20 11:47 98.5 F 96 18 146/87 H 92 L 05/15/20 09:39 101 H 161/95 H 05/15/20 09:30 95 05/15/20 07:53 97.9 F 101 H 16 161/95 H 95 05/15/20 04:20 98.0 F 101 H 16 143/82 H 95 Weight Weight 177 lb 14.4 oz I&O: 05/14/20 05/15/20 05/16/20 06:59 06:59 06:59 Intake Total 640 880 Output Total 750 650 Balance -110 230 Result Diagrams: 05/15/20 09:41 05/11/20 05:09 Additional Labs: Accuchecks 05/15/20 05/15/20 05/14/20 10:57 05:32 20:40 POC Glucose 117 H 95 100 05/14/20 16:06 POC Glucose 74 Hospitalist ROS - Medication Medications: Active Medications Generic Name Dose Route Start Last Admin Trade Name Freq PRN Reason Stop Dose Admin Acetaminophen 650 mg 05/10/20 19:11 05/15/20 11:46 Acetaminophen 325 Mg Tab PO 650 mg Q4H PRN Administration Headache/Fever/Mild Pain (1-3) Hydrocodone Bitart/Acetaminophen 1 tab 05/10/20 19:11 05/15/20 13:22 Hydrocodone/Acetaminophen 5/325 Mg Tablet PO 1 tab Q4H PRN Administration Moderate Pain (4-6) Aspirin 81 mg 05/12/20 09:00 05/15/20 09:38 Aspirin 81 Mg Enteric Coated Tablet PO 81 mg DAILY ZURI Administration Atorvastatin Calcium 40 mg 05/12/20 09:00 05/15/20 09:39 Atorvastatin Calcium 40 Mg Tab PO 40 mg DAILY ZURI Administration Doxepin HCl 10 mg 05/11/20 21:00 05/14/20 20:42 Doxepin Hcl 10 Mg Cap PO 10 mg HS ZURI Administration Famotidine 20 mg 05/10/20 21:00 05/15/20 09:38 Famotidine 20 Mg Tab PO 20 mg BID ZURI Administration Famotidine 20 mg 05/10/20 21:00 05/15/20 09:39 Famotidine/Pf 20 Mg/2ml Vial SLOW IVP Not Given Q12HR [facility] Ceftriaxone Sodium 2 gm/ 100 mls @ 200 mls/hr 05/11/20 17:00 05/14/20 16:13 Sodium Chloride IVPB 100 mls 1700 ZURI Administration Insulin Human Lispro 0 units 05/10/20 19:18 05/11/20 09:12 Humalog 300 Units/3 Ml Vial SC 2 unit .MODERATE SLIDING SC PRN Administration Moderate Correctional Scale Lidocaine 1 patch 05/13/20 09:00 05/15/20 09:38 Lidocaine 5% Patch TD 1 patch DAILY ZURI Administration Lisinopril 5 mg 05/12/20 09:00 05/15/20 09:39 Lisinopril 5 Mg Tab PO 5 mg DAILY ZURI Administration Miscellaneous Medication 1 each 05/12/20 21:00 05/14/20 21:30 Lidocaine Patch Removal 1 Each TOP 1 each 2100 ZURI Administration Olanzapine 2.5 mg 05/12/20 09:00 05/15/20 09:40 Olanzapine 2.5 Mg Tab PO 2.5 mg DAILY ZURI Administration Sodium Chloride 10 ml 05/10/20 19:11 05/13/20 02:20 Flush - Normal Saline 10 Ml Syringe IVF 10 ml PRN PRN Administration Saline Flush Tramadol HCl 50 mg 05/13/20 10:45 05/15/20 07:27 Tramadol Hcl 50 Mg Tab PO 50 mg Q6H PRN Administration Pain Venlafaxine HCl 150 mg 05/12/20 09:00 05/15/20 09:38 Venlafaxine Hcl Xr 150 Mg Cap PO 150 mg DAILY ZURI Administration - Exam General Appearance: NAD, awake alert, ill appearing Eye: PERRL ENT: normocephalic atraumatic Neck: supple Heart: RRR, normal peripheral pulses Respiratory: CTAB, normal chest expansion Gastrointestinal: soft, normal bowel sounds Neurological: cranial nerve grossly intact, no new deficit Psychiatric: normal affect, normal behavior, A&O x 3 Hosp A/P - Plan Chronic back pain Sacral spine osteomyelitis Discitis Paravertebral soft tissue inflammatory process Urinary retention possibly due to discitis -Thoracic and lumbar spine negative with the exception of ventral epidural inflammation versus prominent lipomatosis and a small disc extrusion Mild stenosis at L5 and S1 Beta-hemolytic Streptococcus bacteremia Urine culture negative -Repeating the culture ON for follow-up--------------> cultures were negative x48 hours --- Patient currently on ceftriaxone --Echo showed normal EF of 65% and normal left ventricular size normal mitral valve and aortic wall. -PICC line placed Hypertension -Continue with the lisinopril home regimen Urine retention -Patient has a Sue -Once she is more alert and oriented will DC the Sue and do the voiding trial Bipolar disorder and attention deficit hyperactivity disorder Continue home regimen of Zyprexa Effexor and doxepin Covid negative Debility -Hold the physical therapy treatment until patient is more alert and oriented. - I christophe dc the morphine dose and give her lidocaine patch to her back. Will help to reduce her oversedation Explained to the spouse that because of her debilitation she may not be strong candidate for home health therapy. he preferred that she comes home and he states that he should be able to take care of her with home assistance for IV antibiotic infusion. He also mentioned that he should be able to do IV infusion if we can teach him. She may need to ceftriaxone IV 2 g daily for at least 4 weeks[address] will check with Dr. Vasquez. When she is able to communicate and become more alert, will decide on the options of going home with home physical therapy and nursing for IV abx versus swing bed for IV infusion. she needed ceftriaxone for 6 weeks. Stop date June 26 Patient also quite debilitated with her current condition. Going home and depend on her spouse may be a little too much for the spouse to take care of her. I discussed with the patient that she would benefit with going to the swing bed facility for IV infusion rather than home. She seems to be agreeable for facility placement. We will also discuss with the spouse.
[2020-05-15] MEDS: cefTRIAXone\\ROCEPHIN 2 GM in Sodium Chloride 0.9% 100 ML IVPB SCH (16:02)
[2020-05-15] MEDS: Lidocaine Patch Removal 1 EACH TOP SCH (19:39)
[2020-05-15] MEDS: Doxepin HCl 10 MG CAP PO SCH (19:39)
[2020-05-16] MEDS: HYDROcodone/Acetaminophen 5/325 mg Tablet PO PRN ×6 (01:34→21:11)
[2020-05-16] MEDS: traMADol HCl 50 MG TAB PO PRN ×2 (04:11→12:35)
[2020-05-16] MEDS: Lisinopril 5 MG TAB PO SCH (09:13)
[2020-05-16] MEDS: Atorvastatin Calcium 40 MG TAB PO SCH (09:13)
[2020-05-16] MEDS: Famotidine 20 MG TAB PO SCH ×2 (09:13→21:12)
[2020-05-16] MEDS: Aspirin 81 mg Enteric Coated Tablet PO SCH (09:13)
[2020-05-16] MEDS: Venlafaxine HCl XR 150 MG CAP PO SCH (09:13)
[2020-05-16] MEDS: OLANZapine 2.5 MG TAB PO SCH (09:15)
[2020-05-16] MEDS: Lidocaine 5% Patch TD SCH (09:15)
[2020-05-16] MEDS: Famotidine/PF 20 mg/2ml Vial SLOW IVP SCH ×2 (09:15→21:13)
--- NOTE | 2020-05-16 12:22 | PDOC.HOSPP ---
- Subjective Encounter Date: 05/16/20 Encounter Time: 10:35 Subjective: Patient is quite sleepy this morning. But she is not complaining of any pain at this time. - Objective Vital Signs & Weight: Vital Signs (12 hours) Temp Pulse Resp BP BP Pulse Ox 05/16/20 12:04 98.6 F 83 21 H 133/84 93 L 05/16/20 09:13 88 147/87 H 05/16/20 08:20 98.4 F 88 16 147/87 H 92 L 05/16/20 03:50 95 05/16/20 03:39 98.2 F 90 20 140/87 95 Weight Weight 177 lb 14.4 oz I&O: 05/15/20 05/16/20 05/17/20 06:59 06:59 06:59 Intake Total 880 1530 Output Total 650 1050 Balance 230 480 Result Diagrams: 05/15/20 09:41 05/11/20 05:09 Additional Labs: Accuchecks 05/16/20 05/16/20 05/15/20 11:42 05:44 20:10 POC Glucose 92 86 84 05/15/20 15:06 POC Glucose 105 H Hospitalist ROS - Medication Medications: Active Medications Generic Name Dose Route Start Last Admin Trade Name Freq PRN Reason Stop Dose Admin Acetaminophen 650 mg 05/10/20 19:11 05/15/20 11:46 Acetaminophen 325 Mg Tab PO 650 mg Q4H PRN Administration Headache/Fever/Mild Pain (1-3) Hydrocodone Bitart/Acetaminophen 1 tab 05/10/20 19:11 05/16/20 09:14 Hydrocodone/Acetaminophen 5/325 Mg Tablet PO 1 tab Q4H PRN Administration Moderate Pain (4-6) Aspirin 81 mg 05/12/20 09:00 05/16/20 09:13 Aspirin 81 Mg Enteric Coated Tablet PO 81 mg DAILY ZURI Administration Atorvastatin Calcium 40 mg 05/12/20 09:00 05/16/20 09:13 Atorvastatin Calcium 40 Mg Tab PO 40 mg DAILY ZURI Administration Doxepin HCl 10 mg 05/11/20 21:00 05/15/20 19:39 Doxepin Hcl 10 Mg Cap PO 10 mg HS ZURI Administration Famotidine 20 mg 05/10/20 21:00 05/16/20 09:13 Famotidine 20 Mg Tab PO 20 mg BID ZURI Administration Famotidine 20 mg 05/10/20 21:00 05/16/20 09:15 Famotidine/Pf 20 Mg/2ml Vial SLOW IVP Not Given Q12HR [facility] Ceftriaxone Sodium 2 gm/ 100 mls @ 200 mls/hr 05/11/20 17:00 05/15/20 16:02 Sodium Chloride IVPB 100 mls 1700 ZURI Administration Insulin Human Lispro 0 units 05/10/20 19:18 05/11/20 09:12 Humalog 300 Units/3 Ml Vial SC 2 unit .MODERATE SLIDING SC PRN Administration Moderate Correctional Scale Lidocaine 1 patch 05/13/20 09:00 05/16/20 09:15 Lidocaine 5% Patch TD 1 patch DAILY ZURI Administration Lisinopril 5 mg 05/12/20 09:00 05/16/20 09:13 Lisinopril 5 Mg Tab PO 5 mg DAILY ZURI Administration Miscellaneous Medication 1 each 05/12/20 21:00 05/15/20 19:39 Lidocaine Patch Removal 1 Each TOP 1 each 2100 ZURI Administration Olanzapine 2.5 mg 05/12/20 09:00 05/16/20 09:15 Olanzapine 2.5 Mg Tab PO 2.5 mg DAILY ZURI Administration Sodium Chloride 10 ml 05/10/20 19:11 05/13/20 02:20 Flush - Normal Saline 10 Ml Syringe IVF 10 ml PRN PRN Administration Saline Flush Tramadol HCl 50 mg 05/13/20 10:45 05/16/20 04:11 Tramadol Hcl 50 Mg Tab PO 50 mg Q6H PRN Administration Pain Venlafaxine HCl 150 mg 05/12/20 09:00 05/16/20 09:13 Venlafaxine Hcl Xr 150 Mg Cap PO 150 mg DAILY ZURI Administration - Exam General Appearance: NAD, ill appearing Eye: PERRL ENT: normocephalic atraumatic Neck: supple Heart: RRR, normal peripheral pulses Respiratory: CTAB, normal chest expansion Gastrointestinal: soft, normal bowel sounds Neurological: cranial nerve grossly intact Psychiatric: somnolent, lethargic Hosp A/P - Plan Chronic back pain Sacral spine osteomyelitis Discitis Paravertebral soft tissue inflammatory process Urinary retention possibly due to discitis -Thoracic and lumbar spine negative with the exception of ventral epidural inflammation versus prominent lipomatosis and a small disc extrusion Mild stenosis at L5 and S1 Beta-hemolytic Streptococcus bacteremia Urine culture negative -Repeating the culture ON for follow-up--------------> cultures were negative x48 hours --- Patient currently on ceftriaxone --Echo showed normal EF of 65% and normal left ventricular size normal mitral valve and aortic wall. -PICC line placed Hypertension -Continue with the lisinopril home regimen Urine retention -Patient has a Sue -Once she is more alert and oriented will DC the Sue and do the voiding trial Bipolar disorder and attention deficit hyperactivity disorder Continue home regimen of Zyprexa Effexor and doxepin Covid negative Debility -Hold the physical therapy treatment until patient is more alert and oriented. - I christophe dc the morphine dose and give her lidocaine patch to her back. Will help to reduce her oversedation Explained to the spouse that because of her debilitation she may not be strong candidate for home health therapy. he preferred that she comes home and he states that he should be able to take care of her with home assistance for IV antibiotic infusion. He also mentioned that he should be able to do IV infusion if we can teach him. She may need to ceftriaxone IV 2 g daily for at least 4 weeks. will check with Dr. Vasquez. When she is able to communicate and become more alert, will decide on the options of going home with home physical therapy and nursing for IV abx versus swing bed for IV infusion. she needed ceftriaxone for 6 weeks. Stop date June 26 Patient also quite debilitated with her current condition. Going home and depend on her spouse may be a little too much for the spouse to take care of her. I discussed with the patient that she would benefit with going to the swing bed facility for IV infusion rather than home. She seems to be agreeable for facility placement. We will also discuss with the spouse. Pending placement
[2020-05-16] MEDS: cefTRIAXone\\ROCEPHIN 2 GM in Sodium Chloride 0.9% 100 ML IVPB SCH (16:41)
[2020-05-16] MEDS: HumaLOG 300 UNITS/3 ML VIAL SC PRN (18:43)
[2020-05-16] MEDS: Doxepin HCl 10 MG CAP PO SCH (21:12)
[2020-05-16] MEDS: Lidocaine Patch Removal 1 EACH TOP SCH (22:47)
[2020-05-17] MEDS: HYDROcodone/Acetaminophen 5/325 mg Tablet PO PRN ×5 (01:21→22:23)
[2020-05-17] MEDS: traMADol HCl 50 MG TAB PO PRN ×3 (06:35→20:01)
[2020-05-17] MEDS: Lisinopril 5 MG TAB PO SCH (08:57)
[2020-05-17] MEDS: Atorvastatin Calcium 40 MG TAB PO SCH (08:57)
[2020-05-17] MEDS: Venlafaxine HCl XR 150 MG CAP PO SCH (08:57)
[2020-05-17] MEDS: Aspirin 81 mg Enteric Coated Tablet PO SCH (08:57)
[2020-05-17] MEDS: Famotidine 20 MG TAB PO SCH ×2 (08:57→20:01)
[2020-05-17] MEDS: Lidocaine 5% Patch TD SCH (08:58)
[2020-05-17] MEDS: OLANZapine 2.5 MG TAB PO SCH (08:58)
[2020-05-17] MEDS: Famotidine/PF 20 mg/2ml Vial SLOW IVP SCH ×2 (08:58→20:02)
--- NOTE | 2020-05-17 10:09 | CT ---
CT angiogram of the chest: 05/17/2020 COMPARISON: None available HISTORY: Hypoxia TECHNIQUE: Axial CT imaging at 2.5 mm intervals from the thoracic inlet through the upper abdomen wit h IV contrast using CT angiogram protocol. Coronal and sagittal 3-D reformatted imaging obtained. FINDINGS: There is a left upper extremity PICC with distal tip terminating at the cavoatrial junction . There is no axillary, or mediastinal lymphadenopathy. There is no left hilar lymphadenopathy. There i s mild prominence of lymph nodes within the right hilum measuring 1 cm in short axis dimension. No significant pleural, pericardial, or mediastinal fluid is seen. Imaged upper abdomen demonstrates diffuse hepatic hypodensities suggesting steatosis. No pneumothorax is evident. The lung parenchyma demonstrates no acute abnormality. No suspicious mass/nodule is noted on either s luis felipe. Horizontally oriented linear density within the inferior anterior lingula noted suggesting scar and/or volume loss. Review of the osseous structures demonstrates no acute findings. No pulmonary arterial filling defect is seen to suggest the presence of acute pulmonary arterial embo lism. IMPRESSION: No evidence for pulmonary arterial embolism.
[2020-05-17] MEDS ORDERED: Iopamidol-370 76% 500 ML 1 ML ONE (11:10)
--- NOTE | 2020-05-17 13:12 | PDOC.HOSPP ---
- Subjective Encounter Date: 05/17/20 Encounter Time: 09:45 Subjective: Patient seen this morning. Her sats were 92% in the room air consistently. - Objective Vital Signs & Weight: Vital Signs (12 hours) Temp Pulse Resp BP BP Pulse Ox 05/17/20 11:22 98.1 F 90 18 134/80 94 L 05/17/20 08:58 92 L 05/17/20 08:57 87 131/83 05/17/20 07:35 98.8 F 87 18 131/83 92 L 05/17/20 03:39 98.0 F 89 20 135/81 94 L Weight Weight 177 lb 14.4 oz I&O: 05/16/20 05/17/20 05/18/20 06:59 06:59 06:59 Intake Total 1530 700 Output Total 1050 1350 Balance 480 -650 Result Diagrams: 05/15/20 09:41 05/11/20 05:09 Additional Labs: Accuchecks 05/17/20 05/17/20 05/16/20 11:35 05:35 20:07 POC Glucose 147 H 94 75 05/16/20 16:28 POC Glucose 230 H Hospitalist ROS - Medication Medications: Active Medications Generic Name Dose Route Start Last Admin Trade Name Freq PRN Reason Stop Dose Admin Acetaminophen 650 mg 05/10/20 19:11 05/15/20 11:46 Acetaminophen 325 Mg Tab PO 650 mg Q4H PRN Administration Headache/Fever/Mild Pain (1-3) Hydrocodone Bitart/Acetaminophen 1 tab 05/10/20 19:11 05/17/20 09:35 Hydrocodone/Acetaminophen 5/325 Mg Tablet PO 1 tab Q4H PRN Administration Moderate Pain (4-6) Aspirin 81 mg 05/12/20 09:00 05/17/20 08:57 Aspirin 81 Mg Enteric Coated Tablet PO 81 mg DAILY ZURI Administration Atorvastatin Calcium 40 mg 05/12/20 09:00 05/17/20 08:57 Atorvastatin Calcium 40 Mg Tab PO 40 mg DAILY ZURI Administration Doxepin HCl 10 mg 05/11/20 21:00 05/16/20 21:12 Doxepin Hcl 10 Mg Cap PO 10 mg HS ZURI Administration Famotidine 20 mg 05/10/20 21:00 05/17/20 08:57 Famotidine 20 Mg Tab PO 20 mg BID ZURI Administration Famotidine 20 mg 05/10/20 21:00 05/17/20 08:58 Famotidine/Pf 20 Mg/2ml Vial SLOW IVP Not Given Q12HR [facility] Ceftriaxone Sodium 2 gm/ 100 mls @ 200 mls/hr 05/11/20 17:00 05/16/20 16:41 Sodium Chloride IVPB 100 mls 1700 ZURI Administration Insulin Human Lispro 0 units 05/10/20 19:18 05/16/20 18:43 Humalog 300 Units/3 Ml Vial SC 4 unit .MODERATE SLIDING SC PRN Administration Moderate Correctional Scale Lidocaine 1 patch 05/13/20 09:00 05/17/20 08:58 Lidocaine 5% Patch TD 1 patch DAILY ZURI Administration Lisinopril 5 mg 05/12/20 09:00 05/17/20 08:57 Lisinopril 5 Mg Tab PO 5 mg DAILY ZURI Administration Miscellaneous Medication 1 each 05/12/20 21:00 05/16/20 22:47 Lidocaine Patch Removal 1 Each TOP Not Given 2100 [facility] Olanzapine 2.5 mg 05/12/20 09:00 05/17/20 08:58 Olanzapine 2.5 Mg Tab PO 2.5 mg DAILY ZURI Administration Sodium Chloride 10 ml 05/10/20 19:11 05/13/20 02:20 Flush - Normal Saline 10 Ml Syringe IVF 10 ml PRN PRN Administration Saline Flush Tramadol HCl 50 mg 05/13/20 10:45 05/17/20 12:51 Tramadol Hcl 50 Mg Tab PO 50 mg Q6H PRN Administration Pain Venlafaxine HCl 150 mg 05/12/20 09:00 05/17/20 08:57 Venlafaxine Hcl Xr 150 Mg Cap PO 150 mg DAILY ZURI Administration - Exam General Appearance: NAD, awake alert Eye: PERRL ENT: normocephalic atraumatic Neck: supple Heart: RRR, normal peripheral pulses Respiratory: CTAB, normal chest expansion Gastrointestinal: soft, normal bowel sounds Neurological: no focal deficits Musculoskeletal: generalized weakness Hosp A/P - Plan Chronic back pain Sacral spine osteomyelitis Discitis Paravertebral soft tissue inflammatory process Urinary retention possibly due to discitis -Thoracic and lumbar spine negative with the exception of ventral epidural inflammation versus prominent lipomatosis and a small disc extrusion Mild stenosis at L5 and S1 Beta-hemolytic Streptococcus bacteremia Urine culture negative -Repeating the culture ON for follow-up--------------> cultures were negative x48 hours --- Patient currently on ceftriaxone --Echo showed normal EF of 65% and normal left ventricular size normal mitral valve and aortic wall. -PICC line placed Hypertension -Continue with the lisinopril home regimen Urine retention -Patient has a Sue -Once she is more alert and oriented will DC the Sue and do the voiding trial Bipolar disorder and attention deficit hyperactivity disorder Continue home regimen of Zyprexa Effexor and doxepin Covid negative Debility -Hold the physical therapy treatment until patient is more alert and oriented. - I christophe dc the morphine dose and give her lidocaine patch to her back. Will help to reduce her oversedation Explained to the spouse that because of her debilitation she may not be strong candidate for home health therapy. he preferred that she comes home and he states that he should be able to take care of her with home assistance for IV antibiotic infusion. He also mentioned that he should be able to do IV infusion if we can teach him. She may need to ceftriaxone IV 2 g daily for at least 4 weeks. will check with Dr. Vasquez. When she is able to communicate and become more alert, will decide on the options of going home with home physical therapy and nursing for IV abx versus swing bed for IV infusion. she needed ceftriaxone for 6 weeks. Stop date June 26 Patient also quite debilitated with her current condition. Going home and depend on her spouse may be a little too much for the spouse to take care of her. I discussed with the patient that she would benefit with going to the swing bed facility for IV infusion rather than home. She seems to be agreeable for facility placement. We will also discuss with the spouse. Pending placement CT chest negative for pulmonary embolism. Continue physical therapy She is waiting to go to the inpatient rehab.
[2020-05-17] MEDS: cefTRIAXone\\ROCEPHIN 2 GM in Sodium Chloride 0.9% 100 ML IVPB SCH (16:16)
[2020-05-17] MEDS: Doxepin HCl 10 MG CAP PO SCH (20:01)
[2020-05-17] MEDS: Lidocaine Patch Removal 1 EACH TOP SCH (20:02)
[2020-05-18] MEDS: traMADol HCl 50 MG TAB PO PRN ×4 (03:41→23:53)
[2020-05-18] MEDS: Venlafaxine HCl XR 150 MG CAP PO SCH (07:54)
[2020-05-18] MEDS: Lisinopril 5 MG TAB PO SCH (07:54)
[2020-05-18] MEDS: Atorvastatin Calcium 40 MG TAB PO SCH (07:54)
[2020-05-18] MEDS: Famotidine 20 MG TAB PO SCH ×2 (07:54→20:14)
[2020-05-18] MEDS: Aspirin 81 mg Enteric Coated Tablet PO SCH (07:54)
[2020-05-18] MEDS: HYDROcodone/Acetaminophen 5/325 mg Tablet PO PRN ×3 (07:54→20:14)
[2020-05-18] MEDS: Famotidine/PF 20 mg/2ml Vial SLOW IVP SCH ×2 (07:56→20:14)
[2020-05-18] MEDS: OLANZapine 2.5 MG TAB PO SCH (09:04)
[2020-05-18] MEDS: Lidocaine 5% Patch TD SCH (09:04)
--- NOTE | 2020-05-18 13:39 | PDOC.HOSPP ---
- Subjective Encounter Date: 05/18/20 Encounter Time: 09:35 Subjective: Patient looks well. She is more alert and more active patient is able to participate with physical therapy. A CT chest done yesterday because of her hypoxia shows no pulmonary embolism. - Objective Vital Signs & Weight: Vital Signs (12 hours) Temp Pulse Resp BP BP Pulse Ox 05/18/20 11:11 95 14 126/83 94 L 05/18/20 08:14 98.2 F 80 14 131/84 95 05/18/20 08:00 95 05/18/20 07:54 83 123/79 05/18/20 04:00 98.3 F 83 16 123/79 95 Weight Weight 177 lb 14.4 oz I&O: 05/17/20 05/18/20 05/19/20 06:59 06:59 06:59 Intake Total 700 1900 Output Total 1350 1200 150 Balance -650 700 -150 Result Diagrams: 05/15/20 09:41 05/11/20 05:09 Additional Labs: Accuchecks 05/18/20 05/18/20 05/17/20 11:14 05:30 21:08 POC Glucose 125 H 122 H 131 H 05/17/20 16:22 POC Glucose 80 Hospitalist ROS - Medication Medications: Active Medications Generic Name Dose Route Start Last Admin Trade Name Ryderq PRN Reason Stop Dose Admin Acetaminophen 650 mg 05/10/20 19:11 05/15/20 11:46 Acetaminophen 325 Mg Tab PO 650 mg Q4H PRN Administration Headache/Fever/Mild Pain (1-3) Hydrocodone Bitart/Acetaminophen 1 tab 05/10/20 19:11 05/18/20 07:54 Hydrocodone/Acetaminophen 5/325 Mg Tablet PO 1 tab Q4H PRN Administration Moderate Pain (4-6) Aspirin 81 mg 05/12/20 09:00 05/18/20 07:54 Aspirin 81 Mg Enteric Coated Tablet PO 81 mg DAILY ZURI Administration Atorvastatin Calcium 40 mg 05/12/20 09:00 05/18/20 07:54 Atorvastatin Calcium 40 Mg Tab PO 40 mg DAILY ZURI Administration Doxepin HCl 10 mg 05/11/20 21:00 05/17/20 20:01 Doxepin Hcl 10 Mg Cap PO 10 mg HS ZURI Administration Famotidine 20 mg 05/10/20 21:00 05/18/20 07:54 Famotidine 20 Mg Tab PO 20 mg BID ZURI Administration Famotidine 20 mg 05/10/20 21:00 05/18/20 07:56 Famotidine/Pf 20 Mg/2ml Vial SLOW IVP Not Given Q12HR ZURI Ceftriaxone Sodium 2 gm/ 100 mls @ 200 mls/hr 05/11/20 17:00 05/17/20 16:16 Sodium Chloride IVPB 100 mls 1700 ZURI Administration Insulin Human Lispro 0 units 05/10/20 19:18 05/16/20 18:43 Humalog 300 Units/3 Ml Vial SC 4 unit .MODERATE SLIDING SC PRN Administration Moderate Correctional Scale Lidocaine 1 patch 05/13/20 09:00 05/18/20 09:04 Lidocaine 5% Patch TD 1 patch DAILY ZURI Administration Lisinopril 5 mg 05/12/20 09:00 05/18/20 07:54 Lisinopril 5 Mg Tab PO 5 mg DAILY ZURI Administration Miscellaneous Medication 1 each 05/12/20 21:00 05/17/20 20:02 Lidocaine Patch Removal 1 Each TOP 1 each 2100 ZURI Administration Olanzapine 2.5 mg 05/12/20 09:00 05/18/20 09:04 Olanzapine 2.5 Mg Tab PO 2.5 mg DAILY ZURI Administration Sodium Chloride 10 ml 05/10/20 19:11 05/13/20 02:20 Flush - Normal Saline 10 Ml Syringe IVF 10 ml PRN PRN Administration Saline Flush Tramadol HCl 50 mg 05/13/20 10:45 05/18/20 12:09 Tramadol Hcl 50 Mg Tab PO 50 mg Q6H PRN Administration Pain Venlafaxine HCl 150 mg 05/12/20 09:00 05/18/20 07:54 Venlafaxine Hcl Xr 150 Mg Cap PO 150 mg DAILY ZURI Administration - Exam General Appearance: awake alert Eye: PERRL ENT: normocephalic atraumatic Neck: supple Heart: RRR Respiratory: CTAB, normal chest expansion Gastrointestinal: soft, no palpable masses Neurological: no focal deficits Psychiatric: A&O x 3 Hosp A/P - Plan Chronic back pain Sacral spine osteomyelitis Discitis Paravertebral soft tissue inflammatory process Urinary retention possibly due to discitis -Thoracic and lumbar spine negative with the exception of ventral epidural inflammation versus prominent lipomatosis and a small disc extrusion Mild stenosis at L5 and S1 Beta-hemolytic Streptococcus bacteremia Urine culture negative -Repeating the culture ON for follow-up--------------> cultures were negative x48 hours --- Patient currently on ceftriaxone --Echo showed normal EF of 65% and normal left ventricular size normal mitral v alve and aortic wall. -PICC line placed Hypertension -Continue with the lisinopril home regimen Urine retention -Patient has a Sue -Once she is more alert and oriented will DC the Sue and do the voiding trial Bipolar disorder and attention deficit hyperactivity disorder Continue home regimen of Zyprexa Effexor and doxepin Covid negative Explained to the spouse that because of her debilitation she may not be strong candidate for home health therapy. he preferred that she comes home and he states that he should be able to take care of her with home assistance for IV antibiotic infusion. He also mentioned that he should be able to do IV infusion if we can teach him. She may need to ceftriaxone IV 2 g daily for at least 4 weeks. will check with Dr. Vasquez. When she is able to communicate and become more alert, will decide on the options of going home with home physical therapy and nursing for IV abx versus swing bed for IV infusion. she needed ceftriaxone for 6 weeks. Stop date June 26 Patient also quite debilitated with her current condition. Going home and depend on her spouse may be a little too much for the spouse to take care of her. I discussed with the patient that she would benefit with going to the swing bed facility for IV infusion rather than home. She seems to be agreeable for facility placement. We will also discuss with the spouse. 1st Patient is improving able to walk with physical therapist assist and supervision, per pt. She would benefit with going to the inpatient rehab as she needs IV antibiotics for 4 weeks. if the spouse prefers to go home then we need to arrange home IV infusion.
[2020-05-18] MEDS: cefTRIAXone\\ROCEPHIN 2 GM in Sodium Chloride 0.9% 100 ML IVPB SCH (16:07)
[2020-05-18] MEDS: Lidocaine Patch Removal 1 EACH TOP SCH (20:14)
[2020-05-18] MEDS: Doxepin HCl 10 MG CAP PO SCH (20:14)
[2020-05-19] MEDS: HYDROcodone/Acetaminophen 5/325 mg Tablet PO PRN ×5 (03:51→23:09)
[2020-05-19] MEDS: OLANZapine 2.5 MG TAB PO SCH (07:55)
[2020-05-19] MEDS: Famotidine/PF 20 mg/2ml Vial SLOW IVP SCH (07:56)
[2020-05-19] MEDS: Lisinopril 5 MG TAB PO SCH (07:56)
[2020-05-19] MEDS: Venlafaxine HCl XR 150 MG CAP PO SCH (07:56)
[2020-05-19] MEDS: Lidocaine 5% Patch TD SCH (07:56)
[2020-05-19] MEDS: Atorvastatin Calcium 40 MG TAB PO SCH (07:56)
[2020-05-19] MEDS: Aspirin 81 mg Enteric Coated Tablet PO SCH (07:56)
[2020-05-19] MEDS: Famotidine 20 MG TAB PO SCH ×2 (07:56→20:23)
[2020-05-19] MEDS: traMADol HCl 50 MG TAB PO PRN ×2 (10:34→16:33)
[2020-05-19] MEDS: cefTRIAXone\\ROCEPHIN 2 GM in Sodium Chloride 0.9% 100 ML IVPB SCH (16:25)
--- NOTE | 2020-05-19 19:59 | PDOC.HOSPP ---
- Subjective Encounter Date: 05/19/20 Encounter Time: 10:30 Subjective: Patient seen and examined for discitis. No new overnight events. No fever or chills. - Objective Vital Signs & Weight: Vital Signs (12 hours) Temp Pulse Resp BP Pulse Ox 05/19/20 15:32 98.8 F 91 18 115/78 94 L 05/19/20 11:08 98.6 F 81 18 129/83 93 L Weight Weight 177 lb 14.4 oz I&O: 05/18/20 05/19/20 05/20/20 06:59 06:59 06:59 Intake Total 1900 1100 1300 Output Total 1200 150 Balance 947 323 1799 Result Diagrams: 05/15/20 09:41 05/11/20 05:09 Additional Labs: Accuchecks 05/19/20 05/19/20 05/19/20 15:31 11:06 05:35 POC Glucose 100 104 H 122 H 05/18/20 20:19 POC Glucose 139 H Microbiology - Entire Visit 05/12/20 14:06 Venous blood - Right Hand Blood Culture - Final NO GROWTH IN 5 DAYS 05/12/20 14:06 Venous blood - Right Arm Blood Culture - Final NO GROWTH IN 5 DAYS 05/10/20 13:20 Venous blood - Right Arm Blood Culture - Final Streptococcus mitis\oralis 05/10/20 13:20 Venous blood - Left Arm Blood Culture - Final Streptococcus mitis\oralis 05/10/20 18:37 Urine clean catch Urine Culture - Final NO GROWTH AT 36 HOURS Radiology Reviewed by me: Yes (MRI lumbar spine reviewed) Hospitalist ROS - Review of Systems Respiratory: denies: cough, dry, shortness of breath, hemoptysis, SOB with excertion, pleuritic pain, sputum, wheezing, other Cardiovascular: denies: chest pain, palpitations, orthopnea, paroxysmal noc. dyspnea, edema, light headedness, other - Medication Medications: Active Medications Generic Name Dose Route Start Last Admin Trade Name Freq PRN Reason Stop Dose Admin Acetaminophen 650 mg 05/10/20 19:11 05/15/20 11:46 Acetaminophen 325 Mg Tab PO 650 mg Q4H PRN Administration Headache/Fever/Mild Pain (1-3) Hydrocodone Bitart/Acetaminophen 1 tab 05/10/20 19:11 05/19/20 18:56 Hydrocodone/Acetaminophen 5/325 Mg Tablet PO 1 tab Q4H PRN Administration Moderate Pain (4-6) Aspirin 81 mg 05/12/20 09:00 05/19/20 07:56 Aspirin 81 Mg Enteric Coated Tablet PO 81 mg DAILY ZURI Administration Atorvastatin Calcium 40 mg 05/12/20 09:00 05/19/20 07:56 Atorvastatin Calcium 40 Mg Tab PO 40 mg DAILY ZURI Administration Doxepin HCl 10 mg 05/11/20 21:00 05/18/20 20:14 Doxepin Hcl 10 Mg Cap PO 10 mg HS ZURI Administration Famotidine 20 mg 05/10/20 21:00 05/19/20 07:56 Famotidine 20 Mg Tab PO 20 mg BID ZURI Administration Ceftriaxone Sodium 2 gm/ 100 mls @ 200 mls/hr 05/11/20 17:00 05/19/20 16:25 Sodium Chloride IVPB 100 mls 1700 ZURI Administration Insulin Human Lispro 0 units 05/10/20 19:18 05/16/20 18:43 Humalog 300 Units/3 Ml Vial SC 4 unit .MODERATE SLIDING SC PRN Administration Moderate Correctional Scale Lidocaine 1 patch 05/13/20 09:00 05/19/20 07:56 Lidocaine 5% Patch TD 1 patch DAILY ZURI Administration Miscellaneous Medication 1 each 05/12/20 21:00 05/18/20 20:14 Lidocaine Patch Removal 1 Each TOP 1 each 2100 ZURI Administration Olanzapine 2.5 mg 05/12/20 09:00 05/19/20 07:55 Olanzapine 2.5 Mg Tab PO 2.5 mg DAILY ZURI Administration Senna/Docusate Sodium 2 tab 05/10/20 19:11 05/19/20 08:05 Senokot S 8.6-50 Mg Tab PO 2 tab BID PRN Administration Constipation Sodium Chloride 10 ml 05/10/20 19:11 05/13/20 02:20 Flush - Normal Saline 10 Ml Syringe IVF 10 ml PRN PRN Administration Saline Flush Tramadol HCl 50 mg 05/13/20 10:45 05/19/20 16:33 Tramadol Hcl 50 Mg Tab PO 50 mg Q6H PRN Administration Pain Venlafaxine HCl 150 mg 05/12/20 09:00 05/19/20 07:56 Venlafaxine Hcl Xr 150 Mg Cap PO 150 mg DAILY ZURI Administration - Exam General Appearance: NAD Heart: RRR, no gallops Respiratory: no wheezes, no ronchi Gastrointestinal: soft, non-tender, normal bowel sounds Extremities: no cyanosis Hosp A/P - Plan DVT proph w/SCDs Lumbosacral spine osteomyelitis/discitis due to Streptococcus mitis/oralisPOA Diabetes mellitus type II Urinary retention Chronic low back pain Obesity with a BMI 30.5 CKD stage II Hypertension Bipolar disorder Hyponatremia Chronic anemia probably due to nutritional deficiency Plan: Continue IV ceftriaxone. Discontinue lisinopril. Resume home dose of Lopressor. Restart clonazepam and Wellbutrin. Add probiotic. Continue other medications as above. A.m. labs continue physical therapy. Continue other medications as above. DC planning
[2020-05-19] MEDS: Doxepin HCl 10 MG CAP PO SCH (20:23)
[2020-05-19] MEDS: Senokot S 8.6-50 MG TAB PO SCH (20:23)
[2020-05-19] MEDS: clonazePAM 0.5 MG TAB PO SCH (20:26)
[2020-05-19] MEDS: Metoprolol Tartrate 25 MG TAB PO SCH (20:26)
[2020-05-19] MEDS: Lidocaine Patch Removal 1 EACH TOP SCH (20:28)
[2020-05-19] MEDS: Acetaminophen 325 MG TAB PO PRN (23:27)
[2020-05-20] MEDS: HYDROcodone/Acetaminophen 5/325 mg Tablet PO PRN ×4 (03:21→17:06)
[2020-05-20 03:45] LABS: #Basophils 0.1 thou/uL (0.0-0.2); #Eosinphils 0.2 thou/uL (0.0-0.7); #Monocytes 0.8 thou/uL (0.11-0.59); #Neutrophils 5.5 thou/uL (1.40-6.50); %Basophils 0.6 % (0.0-1.0); %Eosinophils 2.5 % (0.0-10.0); %Lymphocytes 31.4 % (21.0-51.0); %Neutrophils 57.6 % (42.0-75.0); Hemoglobin 11.1 g/dL (12.0-16.0); Mean Corpuscular HGB CONC 33.2 g/dL (32.0-36.0); Mean Corpuscular Hemoglobin 32.5 pg (27.0-31.0); Mean Platelet Volume 6.2 fL (7.4-10.4); Platelet Count 533 thou/uL (130-400); RBC Distribution Width 11.4 % (11.5-14.5); Red Blood Cell (RBC) Count 3.41 mill/uL (4.20-5.40); White Blood Cell (WBC) Count 9.5 thou/uL (4.8-10.8)
[2020-05-20 03:59] LABS: ALT (SGPT) 38 U/L (8-55); AST (SGOT) 31 U/L (5-34); Albumin 3.9 g/dL (3.4-4.8); Alkaline Phosphatase 105 U/L (40-110); Anion Gap 16 mmol/L (10-20); BUN (Urea Nitrogen) 11 mg/dL (9.8-20.1); Bilirubin, Total 0.3 mg/dL (0.2-1.2); Calc. Creatinine Clearance 97 mL/min (70-130); Calcium 9.5 mg/dL (7.8-10.44); Carbon Dioxide 26 mmol/L (23-31); Chloride 103 mmol/L (98-107); Globulin 3.2 g/dL (2.4-3.5); Glucose 115 mg/dL (80-115); Magnesium 1.7 mg/dL (1.6-2.6); Phosphorus 4.4 mg/dL (2.3-4.7); Potassium 3.5 mmol/L (3.5-5.1); Protein, Total 7.1 g/dL (6.0-8.3); Sodium 141 mmol/L (136-145)
[2020-05-20] MEDS: Famotidine 20 MG TAB PO SCH ×2 (09:00→20:44)
[2020-05-20] MEDS: clonazePAM 0.5 MG TAB PO SCH ×3 (09:00→20:44)
[2020-05-20] MEDS: Senokot S 8.6-50 MG TAB PO SCH ×2 (09:01→20:54)
[2020-05-20] MEDS: Metoprolol Tartrate 25 MG TAB PO SCH ×2 (09:01→20:44)
[2020-05-20] MEDS: Saccharomyces boulardii 250 MG CAP PO SCH (09:01)
[2020-05-20] MEDS: OLANZapine 2.5 MG TAB PO SCH (09:01)
[2020-05-20] MEDS: Aspirin 81 mg Enteric Coated Tablet PO SCH (09:01)
[2020-05-20] MEDS: Venlafaxine HCl XR 150 MG CAP PO SCH (09:02)
[2020-05-20] MEDS: Bupropion 150 MG SR TAB PO SCH (09:02)
[2020-05-20] MEDS: Lidocaine 5% Patch TD SCH (09:02)
[2020-05-20] MEDS: Polyethylene Glycol 3350 17 GM Packet PO SCH (09:02)
[2020-05-20] MEDS: Atorvastatin Calcium 10 MG TAB PO SCH (09:03)
[2020-05-20] MEDS ORDERED: Magnesium 2 GM/50 ML 2 GM in Premix Bag 1 BAG IVPB SCH (10:30)
[2020-05-20] MEDS: cefTRIAXone\\ROCEPHIN 2 GM in Sodium Chloride 0.9% 100 ML IVPB SCH (17:07)
--- NOTE | 2020-05-20 18:45 | PDOC.HOSPP ---
- Subjective Encounter Date: 05/20/20 Encounter Time: 11:30 Subjective: Patient seen and examined sepsis. Denies any chest pain or shortness of breath. No nausea or vomiting reported. - Objective Vital Signs & Weight: Vital Signs (12 hours) Temp Pulse Resp BP Pulse Ox 05/20/20 16:05 97.9 F 83 14 100/67 92 L 05/20/20 11:01 70 14 118/80 96 05/20/20 08:00 92 L 05/20/20 07:21 69 12 107/69 92 L Weight Weight 177 lb 14.4 oz I&O: 05/19/20 05/20/20 05/21/20 06:59 06:59 06:59 Intake Total 1100 1780 Output Total 150 Balance 950 1780 Result Diagrams: 05/20/20 03:30 05/20/20 03:30 Additional Labs: Accuchecks 05/20/20 05/20/20 05/20/20 16:04 11:01 04:58 POC Glucose 94 125 H 117 H 05/19/20 21:01 POC Glucose 108 H Abnormal Lab Results - Last 48 hrs 05/20/20 03:30: RBC 3.41 L, Hgb 11.1 L, Hct 33.4 L, MCH 32.5 H, RDW 11.4 L, Plt Count 533 H, MPV 6.2 L, Monocytes # 0.8 H Microbiology - Entire Visit 05/12/20 14:06 Venous blood - Right Hand Blood Culture - Final NO GROWTH IN 5 DAYS 05/12/20 14:06 Venous blood - Right Arm Blood Culture - Final NO GROWTH IN 5 DAYS 05/10/20 13:20 Venous blood - Right Arm Blood Culture - Final Streptococcus mitis\oralis 05/10/20 13:20 Venous blood - Left Arm Blood Culture - Final Streptococcus mitis\oralis 05/10/20 18:37 Urine clean catch Urine Culture - Final NO GROWTH AT 36 HOURS Hospitalist ROS - Review of Systems Cardiovascular: denies: chest pain, palpitations, orthopnea, paroxysmal noc. dyspnea, edema, light headedness, other Gastrointestinal: denies: nausea, vomiting, abdominal pain, diarrhea, constipation, melena, hematochezia, other - Medication Medications: Active Medications Generic Name Dose Route Start Last Admin Trade Name Freq PRN Reason Stop Dose Admin Acetaminophen 650 mg 05/10/20 19:11 05/19/20 23:27 Acetaminophen 325 Mg Tab PO 650 mg Q4H PRN Administration Headache/Fever/Mild Pain (1-3) Hydrocodone Bitart/Acetaminophen 1 tab 05/10/20 19:11 05/20/20 17:06 Hydrocodone/Acetaminophen 5/325 Mg Tablet PO 1 tab Q4H PRN Administration Moderate Pain (4-6) Aspirin 81 mg 05/12/20 09:00 05/20/20 09:01 Aspirin 81 Mg Enteric Coated Tablet PO 81 mg DAILY ZURI Administration Atorvastatin Calcium 10 mg 05/20/20 09:00 05/20/20 09:03 Atorvastatin Calcium 10 Mg Tab PO 10 mg DAILY ZURI Administration Bupropion HCl 150 mg 05/20/20 09:00 05/20/20 09:02 Bupropion 150 Mg Sr Tab PO 150 mg DAILY ZURI Administration Clonazepam 0.5 mg 05/19/20 21:00 05/20/20 15:11 Clonazepam 0.5 Mg Tab PO 0.5 mg TID ZURI Administration Doxepin HCl 10 mg 05/11/20 21:00 05/19/20 20:23 Doxepin Hcl 10 Mg Cap PO 10 mg HS ZURI Administration Famotidine 20 mg 05/10/20 21:00 05/20/20 09:00 Famotidine 20 Mg Tab PO 20 mg BID ZURI Administration Ceftriaxone Sodium 2 gm/ 100 mls @ 200 mls/hr 05/11/20 17:00 05/20/20 17:07 Sodium Chloride IVPB 100 mls 1700 ZURI Administration Insulin Human Lispro 0 units 05/10/20 19:18 05/16/20 18:43 Humalog 300 Units/3 Ml Vial SC 4 unit .MODERATE SLIDING SC PRN Administration Moderate Correctional Scale Lidocaine 1 patch 05/13/20 09:00 05/20/20 09:02 Lidocaine 5% Patch TD 1 patch DAILY ZURI Administration Metoprolol Tartrate 12.5 mg 05/19/20 21:00 05/20/20 09:01 Metoprolol Tartrate 25 Mg Tab PO Not Given BID ZURI Miscellaneous Medication 1 each 05/12/20 21:00 05/19/20 20:28 Lidocaine Patch Removal 1 Each TOP Not Given 2100 ZURI Olanzapine 2.5 mg 05/12/20 09:00 05/20/20 09:01 Olanzapine 2.5 Mg Tab PO 2.5 mg DAILY ZURI Administration Polyethylene Glycol 17 gm 05/20/20 09:00 05/20/20 09:02 Polyethylene Glycol 3350 17 Gm Packet PO 17 gm DAILY ZURI Administration Saccharomyces Boulardii 250 mg 05/20/20 09:00 05/20/20 09:01 Saccharomyces Boulardii 250 Mg Cap PO 250 mg DAILY ZURI Administration Senna/Docusate Sodium 2 tab 05/10/20 19:11 05/19/20 08:05 Senokot S 8.6-50 Mg Tab PO 2 tab BID PRN Administration Constipation Senna/Docusate Sodium 2 tab 05/19/20 21:00 05/20/20 09:01 Senokot S 8.6-50 Mg Tab PO 2 tab BID ZURI Administration Sodium Chloride 10 ml 05/10/20 19:11 05/13/20 02:20 Flush - Normal Saline 10 Ml Syringe IVF 10 ml PRN PRN Administration Saline Flush Tramadol HCl 50 mg 05/13/20 10:45 05/19/20 16:33 Tramadol Hcl 50 Mg Tab PO 50 mg Q6H PRN Administration Pain Venlafaxine HCl 150 mg 05/12/20 09:00 05/20/20 09:02 Venlafaxine Hcl Xr 150 Mg Cap PO 150 mg DAILY ZURI Administration - Exam General Appearance: NAD Neck: supple, no JVD Heart: no murmur, no rubs Respiratory: no wheezes, no ronchi Gastrointestinal: soft, non-tender, no guarding, no rigidity Extremities: no cyanosis Hosp A/P - Plan DVT proph w/SCDs 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 Continue aspirin, Lipitor, clonazepam and other medications as above. Pain control. Continue sliding scale continue other medications as above. Continue physical therapy. Await placement
[2020-05-20] MEDS: Doxepin HCl 10 MG CAP PO SCH (20:44)
[2020-05-20] MEDS: traMADol HCl 50 MG TAB PO PRN (20:48)
[2020-05-20] MEDS: Lidocaine Patch Removal 1 EACH TOP SCH (20:54)
[2020-05-21] MEDS: Acetaminophen 325 MG TAB PO PRN (02:01)
[2020-05-21] MEDS: HYDROcodone/Acetaminophen 5/325 mg Tablet PO PRN ×6 (02:47→21:53)
[2020-05-21] MEDS: Lidocaine 5% Patch TD SCH (09:22)
[2020-05-21] MEDS: Polyethylene Glycol 3350 17 GM Packet PO SCH (09:23)
[2020-05-21] MEDS: Atorvastatin Calcium 10 MG TAB PO SCH (09:24)
[2020-05-21] MEDS: Saccharomyces boulardii 250 MG CAP PO SCH (09:24)
[2020-05-21] MEDS: clonazePAM 0.5 MG TAB PO SCH ×3 (09:24→21:46)
[2020-05-21] MEDS: Bupropion 150 MG SR TAB PO SCH (09:24)
[2020-05-21] MEDS: Senokot S 8.6-50 MG TAB PO SCH ×2 (09:24→21:46)
[2020-05-21] MEDS: Aspirin 81 mg Enteric Coated Tablet PO SCH (09:24)
[2020-05-21] MEDS: OLANZapine 2.5 MG TAB PO SCH (09:24)
[2020-05-21] MEDS: Metoprolol Tartrate 25 MG TAB PO SCH ×2 (09:24→21:46)
[2020-05-21] MEDS: Venlafaxine HCl XR 150 MG CAP PO SCH (09:24)
[2020-05-21] MEDS: Famotidine 20 MG TAB PO SCH ×2 (09:24→21:46)
[2020-05-21] MEDS: cefTRIAXone\\ROCEPHIN 2 GM in Sodium Chloride 0.9% 100 ML IVPB SCH (16:32)
[2020-05-21] MEDS: Doxepin HCl 10 MG CAP PO SCH (21:46)
[2020-05-21] MEDS: Lidocaine Patch Removal 1 EACH TOP SCH (21:47)
--- NOTE | 2020-05-21 23:17 | PDOC.HOSPP ---
- Subjective Encounter Date: 05/21/20 Encounter Time: 14:30 Subjective: Patient seen and examined for discitis. Denies any new complaints. No new focal deficit. No fever or chills reported. - Objective Vital Signs & Weight: Vital Signs (12 hours) Temp Pulse Resp BP Pulse Ox 05/21/20 20:55 98.4 F 82 19 117/79 96 05/21/20 16:00 98.5 F 74 16 115/78 97 05/21/20 11:37 98.3 F 71 16 103/72 95 Weight Admit Weight 177 lb 14.4 oz Weight 177 lb 14.4 oz I&O: 05/20/20 05/21/20 05/22/20 06:59 06:59 06:59 Intake Total 1761 034 9582 Balance 4136 026 8512 Result Diagrams: 05/20/20 03:30 05/20/20 03:30 Additional Labs: Accuchecks 05/21/20 05/21/20 05/21/20 16:31 11:34 05:12 POC Glucose 89 102 H 100 Hospitalist ROS - Review of Systems Respiratory: denies: cough, dry, shortness of breath, hemoptysis, SOB with excertion, pleuritic pain, sputum, wheezing, other Cardiovascular: denies: chest pain, palpitations, orthopnea, paroxysmal noc. dyspnea, edema, light headedness, other - Medication Medications: Active Medications Generic Name Dose Route Start Last Admin Trade Name Freq PRN Reason Stop Dose Admin Acetaminophen 650 mg 05/10/20 19:11 05/21/20 02:01 Acetaminophen 325 Mg Tab PO 650 mg Q4H PRN Administration Headache/Fever/Mild Pain (1-3) Hydrocodone Bitart/Acetaminophen 1 tab 05/21/20 02:33 05/21/20 21:53 Hydrocodone/Acetaminophen 5/325 Mg Tablet PO 1 tab Q4H PRN Administration Moderate Pain (4-6) Aspirin 81 mg 05/12/20 09:00 05/21/20 09:24 Aspirin 81 Mg Enteric Coated Tablet PO 81 mg DAILY ZURI Administration Atorvastatin Calcium 10 mg 05/20/20 09:00 05/21/20 09:24 Atorvastatin Calcium 10 Mg Tab PO 10 mg DAILY ZURI Administration Bupropion HCl 150 mg 05/20/20 09:00 05/21/20 09:24 Bupropion 150 Mg Sr Tab PO 150 mg DAILY ZURI Administration Clonazepam 0.5 mg 05/19/20 21:00 05/21/20 21:46 Clonazepam 0.5 Mg Tab PO 0.5 mg TID ZURI Administration Doxepin HCl 10 mg 05/11/20 21:00 05/21/20 21:46 Doxepin Hcl 10 Mg Cap PO 10 mg HS ZURI Administration Famotidine 20 mg 05/10/20 21:00 05/21/20 21:46 Famotidine 20 Mg Tab PO 20 mg BID ZURI Administration Ceftriaxone Sodium 2 gm/ 100 mls @ 200 mls/hr 05/11/20 17:00 05/21/20 16:32 Sodium Chloride IVPB 100 mls 1700 ZURI Administration Insulin Human Lispro 0 units 05/10/20 19:18 05/16/20 18:43 Humalog 300 Units/3 Ml Vial SC 4 unit .MODERATE SLIDING SC PRN Administration Moderate Correctional Scale Lidocaine 1 patch 05/13/20 09:00 05/21/20 09:22 Lidocaine 5% Patch TD 1 patch DAILY ZURI Administration Metoprolol Tartrate 12.5 mg 05/19/20 21:00 05/21/20 21:46 Metoprolol Tartrate 25 Mg Tab PO 12.5 mg BID ZURI Administration Miscellaneous Medication 1 each 05/12/20 21:00 05/21/20 21:47 Lidocaine Patch Removal 1 Each TOP Not Given 2100 ZURI Olanzapine 2.5 mg 05/12/20 09:00 05/21/20 09:24 Olanzapine 2.5 Mg Tab PO 2.5 mg DAILY ZURI Administration Polyethylene Glycol 17 gm 05/20/20 09:00 05/21/20 09:23 Polyethylene Glycol 3350 17 Gm Packet PO 17 gm DAILY ZURI Administration Saccharomyces Boulardii 250 mg 05/20/20 09:00 05/21/20 09:24 Saccharomyces Boulardii 250 Mg Cap PO 250 mg DAILY ZURI Administration Senna/Docusate Sodium 2 tab 05/10/20 19:11 05/19/20 08:05 Senokot S 8.6-50 Mg Tab PO 2 tab BID PRN Administration Constipation Senna/Docusate Sodium 2 tab 05/19/20 21:00 05/21/20 21:46 Senokot S 8.6-50 Mg Tab PO Not Given BID ZURI Sodium Chloride 10 ml 05/10/20 19:11 05/13/20 02:20 Flush - Normal Saline 10 Ml Syringe IVF 10 ml PRN PRN Administration Saline Flush Tramadol HCl 50 mg 05/13/20 10:45 05/20/20 20:48 Tramadol Hcl 50 Mg Tab PO 50 mg Q6H PRN Administration Pain Venlafaxine HCl 150 mg 05/12/20 09:00 05/21/20 09:24 Venlafaxine Hcl Xr 150 Mg Cap PO 150 mg DAILY ZURI Administration - Exam General Appearance: NAD Neck: supple Heart: RRR, no gallops Respiratory: no wheezes, no ronchi Gastrointestinal: soft, non-tender Neurological: no new deficit Musculoskeletal: generalized weakness Hosp A/P - Plan DVT proph w/SCDs 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 Patient already has a PICC line. Patient is declining home health care at this time. Will arrange for outpatient antibiotics set up. Patient has been cleared by physical therapy. Continue other medications as above.
[2020-05-22] MEDS: Acetaminophen/Codeine 30-300mg Tablet PO PRN ×2 (03:03→11:28)
[2020-05-22] MEDS: Polyethylene Glycol 3350 17 GM Packet PO SCH (07:18)
[2020-05-22] MEDS: Lidocaine 5% Patch TD SCH (07:18)
[2020-05-22] MEDS: Metoprolol Tartrate 25 MG TAB PO SCH (07:19)
[2020-05-22] MEDS: Bupropion 150 MG SR TAB PO SCH (07:19)
[2020-05-22] MEDS: Senokot S 8.6-50 MG TAB PO SCH (07:19)
[2020-05-22] MEDS: Venlafaxine HCl XR 150 MG CAP PO SCH (07:19)
[2020-05-22] MEDS: clonazePAM 0.5 MG TAB PO SCH ×2 (07:19→14:17)
[2020-05-22] MEDS: OLANZapine 2.5 MG TAB PO SCH (07:20)
[2020-05-22] MEDS: Famotidine 20 MG TAB PO SCH (07:20)
[2020-05-22] MEDS: Atorvastatin Calcium 10 MG TAB PO SCH (07:20)
[2020-05-22] MEDS: Aspirin 81 mg Enteric Coated Tablet PO SCH (07:20)
[2020-05-22] MEDS: traMADol HCl 50 MG TAB PO PRN ×2 (07:20→14:17)
[2020-05-22] MEDS: Saccharomyces boulardii 250 MG CAP PO SCH (07:21)
[2020-05-22 13:03] VITALS: BP 127/69; TEMP 97.7
[2020-05-22] MEDS: cefTRIAXone\\ROCEPHIN 2 GM in Sodium Chloride 0.9% 100 ML IVPB SCH (14:18)
--- NOTE | 2020-05-22 23:08 | PDOC.DS.DS ---
Provider - Provider Date of Admission: 05/10/20 18:19 Date of Discharge: 05/22/20 Admitting Provider: Shanique Hawkins MD Primary Care Physician: JOANN Spivey Course - Hospital Course Hospital Course: Patient is 69-year-old female with diabetes mellitus type 2 presented to the emergency room with fever along with back pain. Maximum temperature was 104.7 at home. Please refer to the history and physical for further details. The patient was admitted to the hospital with a diagnosis of sepsis. MRI of the thoracic spine was negative for acute findings. MRI of the lumbar spine showed prominent inflammatory process with granulation tissue at the L5-S1 and in the anterior epidural space. Patient was evaluated by infectious disease as well as neurosurgery. She was placed on empiric antibiotics. Blood culture 2 of 2 was positive for Streptococcus mitis/oralis. Echocardiogram showed ejection fraction of 60 to 65% without any endocarditis. CT angiogram of the chest was negative for acute findings as well as pulmonary embolism. Patient will continue ceftriaxone 2 g daily until June 24. She then needs to be on Keflex 500 mg 3 times daily for 2 months. She will also require weekly CBC, CRP and BMP. Patient has been cleared by consultants for discharge. Outpatient antibiotics have been arranged. 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 Diabetes mellitus type II Urinary retention Chronic low back pain Obesity with a BMI 30.5 CKD stage II Hypertension Bipolar disorder Hyponatremia Chronic anemia probably due to nutritional deficiency Resuscitation Status: 05/10/20 19:11 Resuscitation Status Routine Co-Sign Provider: Resuscitation Status: FULL: Full Resuscitation Discussed with: patient - Labs Lab Results: 05/20/20 03:30 05/20/20 03:30 Microbiology - Entire Visit 05/12/20 14:06 Venous blood - Right Hand Blood Culture - Final NO GROWTH IN 5 DAYS 05/12/20 14:06 Venous blood - Right Arm Blood Culture - Final NO GROWTH IN 5 DAYS 05/10/20 13:20 Venous blood - Right Arm Blood Culture - Final Streptococcus mitis\oralis 05/10/20 13:20 Venous blood - Left Arm Blood Culture - Final Streptococcus mitis\oralis 05/10/20 18:37 Urine clean catch Urine Culture - Final NO GROWTH AT 36 HOURS - Physical Exam Vitals: Vital Signs (12 hours) Temp Pulse Resp BP Pulse Ox 05/22/20 12:00 97.7 F 71 18 127/69 96 Weight Admit Weight 177 lb 14.4 oz Weight 177 lb 14.4 oz Physical Exam: The patient was seen and examined on the day of discharge. Plan - Discharge Medications Prescriptions: Ceftriaxone in Is-Osm Dextrose [Ceftriaxone 2 gm-D5w Bag] 2 gm IV ASDIR #1 piggyback Saccharomyces boulardii [Florastor] 250 mg PO DAILY #30 cap traMADol HCl [Ultram] 50 mg PO Q8H PRN #10 tab PRN Reason: Severe Pain (7-10) Home Medications: Medication Instructions Recorded Confirmed Type Aspirin [Ecotrin Low Strength] 81 mg PO DAILY 05/10/20 05/10/20 History Lisdexamfetamine Dimesylate 10 mg PO DAILY 05/10/20 05/10/20 History [Vyvanse] Atorvastatin Calcium [Lipitor] 10 mg PO DAILY 05/19/20 05/19/20 History Doxepin HCl 50 mg PO HS 05/19/20 05/19/20 History Lisinopril 2.5 mg PO DAILY 05/19/20 05/19/20 History Metoprolol Tartrate 25 mg PO BID 05/19/20 05/19/20 History OLANZapine [Zyprexa] 15 mg PO DAILY 05/19/20 05/19/20 History Venlafaxine HCl [Effexor XR] 225 mg PO DAILY 05/19/20 05/19/20 History buPROPion HCl [buPROPion HCl ER] 150 mg PO DAILY 05/19/20 05/19/20 History clonazePAM [Klonopin] 0.5 mg PO TID 05/19/20 05/19/20 History Acetaminophen [Tylenol Regular 650 mg PO Q4H PRN tab 05/22/20 Rx Strength] Ceftriaxone in Is-Osm Dextrose 2 gm IV ASDIR #1 piggyback 05/22/20 Rx [Ceftriaxone 2 gm-D5w Bag] Saccharomyces boulardii [Florastor] 250 mg PO DAILY #30 cap 05/22/20 Rx traMADol HCl [Ultram] 50 mg PO Q8H PRN #10 tab 05/22/20 Rx Allergies: No Known Allergies Allergy (Verified 05/10/20 21:44) - Discharge Instructions Discharge Instructions:: after d/c pt to continue on iv Rocephin 2g /day end date = jun 24 after completion of Rocephin switch to Keflex 500 tid x 2 months weekly cbc,crp,bmp - Follow up Plan Referrals: [facility]* [Outside] (Pt to receive iv antibiotics through the [facility]. Pt to arrive at 8pm every night for the duration of her iv antibiotic treatment starting tomorrow 05/23/2020. ) Sami Dong MD [Active] - 14 Days Adriana Barakat PA-C [Primary Care Provider] - 7 Days Liborio Vasquez MD [Active] - Disposition: HOME Quality - Care Measures CORE MEASURES:: N/A
--- NOTE | 2020-05-23 06:41 | PQF ---
Dear : Nemesio Gann Date 05/23/2020 Please exercise your independent, professional judgment in responding to the clarification form. Clinical indicators are provided on the bottom of this form for your review Can you please further clarify the specificity of Discitis? Please check appropriate box(es): [ ] Polygenic Discitis [ x ] Unspecified Discitis [ ] Other diagnosis please specify [ ] Unable to determine Physician Signature: Date/Time: For continuity of documentation, please document condition throughout progress notes and discharge summary. Thank You. To be completed by CDI/Coding staff for physician review: Present Clinical Indicators - Signs / Symptoms / Labs Results and Location in Medical Record [ X] Back pain and fever H and P pg.1 [ X] Prominent inflammatory process with granulation tissue at the L5-S1 H ad P pg.3 [ X] Lumbar spine osteomyelitis, diskitis Consult pg.2 Dr. Vasquez [ X] Inflammatory process 2/2 streptococcal pathogen Consult pg2-3 Dr. Vasquez [ X] Patient seen and examine for discitis Hospitalist PN 05/21 pg.1 [ X] Lumbar spine osteomyelitis/ discitis due to streptococcus mitis/ oralis Hospitalist PN 05/21 pg.5 Present Risk Factors Results and Location in Medical Record [ X] 69 years old [ X] HTN [ X] DM [ X] HLD Present Treatments Results and Location in Medical Record [ X] Infectious Consult Dr. Vasquez [ X] Neurology Consult Dr. Dong [ X] IV Fluids MAR [ X] IV Antibiotics MAR CDS/Chick Sexer Signature: MadhuriJony palacioskimberly Lambertjamalenny Phone #: [phone] Date 05/23/2020 MTDD
== END 2020-05-22 16:00 | disposition home or self-care (01) | DRG 552 ==
LOC: ERS 12:23 → SURG A 18:19 → OBSVTOIN 18:19
PROVIDERS: ADMIT Internal Medicine; ATTEND Internal Medicine
PROC: 02HV33Z Insertion of Infusion Device into Superior Vena Cava, Percutaneous Approach (ICD-10-PCS; principal; 2020-05-14)
PROC: B548ZZA Ultrasonography of Superior Vena Cava, Guidance (ICD-10-PCS; 2020-05-14)
PROC: B5181ZA Fluoroscopy of Superior Vena Cava using Low Osmolar Contrast, Guidance (ICD-10-PCS; 2020-05-14)
DX: M46.47 Discitis, unspecified, lumbosacral region (principal); E87.1 Hypo-osmolality and hyponatremia; R78.81 Bacteremia; M46.27 Osteomyelitis of vertebra, lumbosacral region; Z20.822 Contact with and (suspected) exposure to COVID-19; E11.69 Type 2 diabetes mellitus with other specified complication; E11.22 Type 2 diabetes mellitus with diabetic chronic kidney disease; N18.2 Chronic kidney disease, stage 2 (mild); I12.9 Hypertensive chronic kidney disease with stage 1 through stage 4 chronic kidney disease, or unspecified chronic kidney disease; M54.5 Low back pain; G89.29 Other chronic pain; F31.9 Bipolar disorder, unspecified; E78.5 Hyperlipidemia, unspecified; F90.9 Attention-deficit hyperactivity disorder, unspecified type; B95.4 Other streptococcus as the cause of diseases classified elsewhere; R33.9 Retention of urine, unspecified; M48.07 Spinal stenosis, lumbosacral region; M51.27 Other intervertebral disc displacement, lumbosacral region; D53.9 Nutritional anemia, unspecified; Z90.710 Acquired absence of both cervix and uterus; Z79.82 Long term (current) use of aspirin; Z79.899 Other long term (current) drug therapy; E66.9 Obesity, unspecified; Z68.30 Body mass index [BMI] 30.0-30.9, adult
CPT/HCPCS: 36415; 36416; 36569; 51701; 71045; 71275; 72157; 72158; 80048; 80053; 81003; 81015; 83036; 83735; 84100; 84145; 85025; 85379; 85652; 86140; 87040; 87077; 87086; 87149; 87186; 87635; 93306; 96365; 96375; 96376; A9579; C1751; J0692; J0696; J1644; J2270; J2405; J3370; J3475; J3490; Q9967; U0003

== ENCOUNTER 2020-10-09 13:44 | Outpatient (CLI) | payer MEDICARE | END 2020-10-09 13:45 | disposition home or self-care (01) | LOC: BICMAMMO 13:44 | PROVIDERS: ATTEND Family Medicine | DX: Z12.31 Encounter for screening mammogram for malignant neoplasm of breast (principal); Z13.820 Encounter for screening for osteoporosis; M85.89 Other specified disorders of bone density and structure, multiple sites | CPT/HCPCS: 77063; 77067; 77080 ==

== ENCOUNTER 2020-10-29 12:50 | Outpatient (CLI) | payer MEDICARE ==
[2020-10-29] MEDS ORDERED: Magnevist 469MG/ML 20 ML VIAL ONE (13:59)
== END 2020-10-29 12:51 | disposition home or self-care (01) ==
LOC: BICMRI 12:50
PROVIDERS: ATTEND Family Medicine
DX: M47.26 Other spondylosis with radiculopathy, lumbar region (principal); M47.817 Spondylosis without myelopathy or radiculopathy, lumbosacral region
CPT/HCPCS: 72158; A9579

== ENCOUNTER 2021-03-01 14:19 | Outpatient (CLI) | payer MEDICARE | END 2021-03-01 14:20 | disposition home or self-care (01) | LOC: BICRAD 14:19 | PROVIDERS: ATTEND Family Medicine | DX: M25.551 Pain in right hip (principal); M25.552 Pain in left hip; M16.0 Bilateral primary osteoarthritis of hip; M25.751 Osteophyte, right hip ==

== ENCOUNTER 2021-03-13 12:10 | Outpatient (CLI) | payer MEDICARE | END 2021-03-13 12:11 | disposition home or self-care (01) | LOC: BICULT 12:10 | PROVIDERS: ATTEND Family Medicine | DX: N28.9 Disorder of kidney and ureter, unspecified (principal) | CPT/HCPCS: 76770 ==

== ENCOUNTER 2022-01-08 04:30 | Emergency (ER) | payer MEDICARE ==
[2022-01-08 05:40] LABS: #Eosinphils 0.2 thou/uL (0.0-0.7); #Lymphocytes 3.4 thou/uL (1.20-3.40); #Monocytes 0.7 thou/uL (0.11-0.59); #Neutrophils 4.2 thou/uL (1.40-6.50); %Basophils 0.4 % (0.0-1.0); %Eosinophils 2.2 % (0.0-10.0); %Lymphocytes 39.7 % (21.0-51.0); %Monocytes 8.3 % (0.0-10.0); %Neutrophils 49.4 % (42.0-75.0); Hemoglobin 12.5 g/dL (12.0-16.0); Mean Corpuscular HGB CONC 35.1 g/dL (32.0-36.0); Mean Corpuscular Hemoglobin 34.2 pg (27.0-31.0); Mean Corpuscular Volume 97.4 fL (78.0-98.0); Mean Platelet Volume 6.9 fL (7.4-10.4); Platelet Count 221 thou/uL (130-400); RBC Distribution Width 11.1 % (11.5-14.5); Red Blood Cell (RBC) Count 3.64 mill/uL (4.20-5.40); White Blood Cell (WBC) Count 8.5 thou/uL (4.8-10.8)
[2022-01-08 05:52] LABS: Bilirubin Negative (Negative); Blood, Urine Negative (Negative); Clarity Clear (Clear); Glucose, Urine (Dipstick) 50 mg/dL (Negative); Ketone, Urine Negative (Negative); Leukocyte 250 Leu/uL (Negative); Nitrite Negative (Negative); Protein, Urine (Dipstick) Negative (Neg-Trace); RBC/HPF 0-3 HPF (0-3); Specific Gravity, Urine 1.009 (1.002-1.036); Squamous Epithelial 0-3 HPF (0-3); Urobilinogen Normal mg/dL (Less than 2); pH, Urine 5.5 (5.0-9.0)
[2022-01-08 06:23] LABS: ALT (SGPT) 84 U/L (8-55); AST (SGOT) 64 U/L (5-34); Albumin 4.2 g/dL (3.4-4.8); Alkaline Phosphatase 116 U/L (40-110); Anion Gap 18 mmol/L (10-20); BUN (Urea Nitrogen) 12 mg/dL (9.8-20.1); Bilirubin, Total 0.4 mg/dL (0.2-1.2); Calc. Creatinine Clearance 0 mL/min (70-130); Calcium 9.1 mg/dL (7.8-10.44); Carbon Dioxide 18 mmol/L (23-31); Chloride 105 mmol/L (98-107); Estimated GFR 46; Globulin 2.3 g/dL (2.4-3.5); Glucose 260 mg/dL (80-115); Potassium 4.5 mmol/L (3.5-5.1); Protein, Total 6.5 g/dL (5.8-8.1); Sodium 136 mmol/L (136-145)
== END 2022-01-08 06:35 | disposition home or self-care (01) ==
LOC: ERS 04:30
DX: R44.1 Visual hallucinations (principal); N30.00 Acute cystitis without hematuria; E11.9 Type 2 diabetes mellitus without complications; Z79.82 Long term (current) use of aspirin; Z79.899 Other long term (current) drug therapy
CPT/HCPCS: 36415; 80053; 81003; 81015; 85025; 87086; 99284